=== PATIENT | female | born 1990 | race Caucasian/White ===

== ENCOUNTER 2016-08-31 17:20 | Inpatient (IN) | payer MEDICAID, OTHER ==
[~2016-08-31] VITALS: Ht 160 cm; Wt 60.0 kg
[~2016-08-31 17:20] MED LIST: PNV1TABL4 PO; PREN1TAB17 PO
[2016-08-31] MEDS ORDERED: morphine 4 MG/ML VIAL IV STA (17:39)
[2016-08-31] MEDS ORDERED: ONDANSETRON 4 MG INJ IV STA (17:39)
--- NOTE | 2016-08-31 18:40 | RADRPT ---
PROCEDURE: Abdominal Ultrasound (right upper quadrant). CLINICAL INDICATION: Abdominal pain TECHNIQUE: Multiple real-time longitudinal and transverse images of the right upper quadrant of th e abdomen were acquired utilizing a curved array transducer. Images were reviewed on a high-resoluti on PACS workstation. COMPARISON: None FINDINGS: The liver is normal in size and echogenicity. No focal masses are identified. There is no evidenc e of intra or extrahepatic ductal dilatation. The common bile duct measures 2.8 mm in diameter. Gal lstones are identified within the gallbladder. There is no gallbladder wall thickening. The visualized portions of the pancreas are unremarkable with obscuration of the tail of the pancrea s. No free fluid is identified. There is no evidence of right hydronephrosis or renal calcification. The right kidney measures 10.1 cm in length. The visualized portions of the aorta and inferior vena cava are within normal limits. IMPRESSION: 1. Cholelithiasis. 2. Otherwise unremarkable right upper quadrant ultrasound. RPTAT: HJBF .Judd Mallory MD, Date Time Electronically viewed and signed by .Judd Mallory MD, MD on 08/31/2016 18:40 .B/
[2016-08-31 19:21] LABS: HEMATOCRIT 41.8 % (37.0-47.0); HEMOGLOBIN 14.4 g/dl (12.0-16.0); MEAN CORPUSCULAR HGB CONC 34.5 g/dl (32.0-37.0); MEAN CORPUSCULAR VOLUME 87.2 fl (82.0-101.0); MEAN PLATELET VOLUME 9.1 fl (7.4-10.4); PLATELET COUNT 309 10^3/UL (140-440); RED BLOOD COUNT 4.79 10^6/ul (4.20-5.40); RED CELL DISTRIBUTION WIDTH 12.6 % (11.5-14.5); UNCORRECTED WBC 22.6 10^3/ul (4.8-10.8); WHITE BLOOD COUNT 22.6 10^3/ul (4.8-10.8)
[2016-08-31 19:37] LABS: CONDITION 1; LH ANALYZER COMMENTS 1; SUSPECT 1
[2016-08-31 20:06] LABS: ALBUMIN 4.4 g/dl (3.3-4.9); POTASSIUM 3.8 mmol/L (3.5-5.1)
[2016-08-31 20:09] LABS: ALBUMIN/GLOBULIN RATIO 1.12; BILIRUBIN,INDIRECT 0.5 mg/dl (0-1.1); BILIRUBIN,TOTAL 0.5 mg/dl (0.2-1.3); CALCIUM 9.4 mg/dl (8.4-10.2); CREATININE 0.4 mg/dl (0.44-1.00); TOTAL PROTEIN 8.3 g/dl (6.1-8.1)
[2016-08-31] MEDS ORDERED: SOD CHLORIDE 0.9% 1,000 ML IV ONE ×2 (20:21→21:00)
[2016-08-31] MEDS ORDERED: KETOROLAC 15 MG INJ IV STA (20:32)
[2016-08-31 20:34] LABS: LYMPHOCYTES # 4.7 10^3/ul (0.8-2.9); NEUTROPHIL # 7.5 10^3/ul (1.6-7.5)
[2016-08-31] MEDS ORDERED: ONDA4TAB8 PO (20:35)
[2016-08-31] MEDS ORDERED: IBUP-1542 PO (20:35)
[2016-08-31] MEDS ORDERED: OXYC-279 PO (20:35)
[2016-08-31 21:34] LABS: ADD UMIC YES; URINE BILIRUBIN (Dip) NEGATIVE (NEGATIVE); URINE BLOOD (Dip) TRACE (NEGATIVE); URINE COLOR YELLOW (YELLOW); URINE GLUCOSE (Dip) NEGATIVE (NEGATIVE); URINE KETONES (Dip) 3+ (NEGATIVE); URINE LEUKOCYTE ESTERASE (Dip) NEGATIVE (NEGATIVE); URINE NITRITE (Dip) NEGATIVE (NEGATIVE); URINE TOTAL PROTEIN (Dip) TRACE (NEGATIVE); URINE UROBILINOGEN (Dip) 0.2 E.U./dL (0.1-1.0)
--- NOTE | 2016-08-31 21:59 | CONS ---
Date/Time of Note Date/Time of Note DATE: 08/31/16 TIME: 21:57 Assessment/Plan Assessment/Plan Chief Complaint/Hosp Course 1. Pancreatitis probably 2nd Cholelithiasis -npo -ivf -medical optimization -pain control 2. Cholelithiasis -eventual cholecystectomy after resolution of pancreatitis Thank you, Problems: Consultation Date/Type/Reason Admit Date/Time Date of Consultation: Aug 31, 2016 Type of Consultation: Gen Surgical Reason for Consultation Abdominal pain Pancreatitis Cholelithiasis Leukocytosis Social History Smoking Status: Never smoker Exam/Review of Systems Vital Signs Vitals Vital Signs Date Time Temp Pulse Resp B/P Pulse Ox O2 Delivery O2 Flow Rate FiO2 08/31/16 17:25 98.5 100 22 130/72 100 Results Result Diagram: 08/31/16 1800 08/31/16 1800 Results 24 hrs Laboratory Tests Test 08/31/16 18:00 08/31/16 21:07 Alanine Aminotransferase (ALT/SGPT) 352 H Albumin 4.4 Albumin/Globulin Ratio 1.12 Alkaline Phosphatase 119 Anion Gap 20 H Aspartate Amino Transf (AST/SGOT) 320 H Band Neutrophils % 37.0 H Blood Urea Nitrogen 15 Calcium Level 9.4 Carbon Dioxide Level 23 Chloride Level 103 Creatinine 0.40 L Direct Bilirubin 0.00 Globulin 3.90 H Glucose Level 101 Hematocrit 41.8 Hemoglobin 14.4 Indirect Bilirubin 0.5 Lipase 58724 H Lymphocytes # 4.7 H Lymphocytes % 21.0 Mean Corpuscular Hemoglobin 30.0 Mean Corpuscular Hemoglobin Concent 34.5 Mean Corpuscular Volume 87.2 Mean Platelet Volume 9.1 Monocytes # 2.0 H Monocytes % 9.0 Neutrophils # 7.5 Neutrophils % 33.0 L Platelet Count 309 Potassium Level 3.8 Red Blood Count 4.79 Red Cell Distribution Width 12.6 Sodium Level 142 Total Bilirubin 0.5 Total Protein 8.3 H White Blood Count 22.6 H Urine Bilirubin NEGATIVE Urine Clarity CLEAR Urine Color YELLOW Urine Glucose NEGATIVE Urine Hemoglobin TRACE Urine Ketones 3+ H Urine Leukocyte Esterase NEGATIVE Urine Microscopic RBC Pending Urine Microscopic WBC Pending Urine Nitrite NEGATIVE Urine Specific [place] 1.020 Urine Total Protein TRACE Urine Urobilinogen 0.2 E.U./dL Urine pH 7.0 Medications Medications Current Medications Sodium Chloride 1,000 ml @ 1,000 mls/hr Q1H ONCE IV Last administered on t 20:44; Admin Dose 1,000 MLS/HR; Start 08/31/16 at 21:00; Stop 08/31/16 at 21: 59 Piperacillin Sod/ Tazobactam Sod (Zosyn 3.375gm/ 100 ml (Pmx)) 100 ml @ 200 mls /hr ONCE ONCE IVPB ; Start 08/31/16 at 22:00; Stop 08/31/16 at 22:29 ROLANDO NICOLE MD Aug 31, 2016 21:59
[2016-08-31] MEDS ORDERED: PIPER-TAZO 3.375 GM IV (PMX) 100 ML IVPB ONE (22:00)
[2016-08-31 22:06] LABS: BACTERIA,URINE MODERATE; SQUAMOUS EPITHELIAL CELL,UR MODERATE
[2016-08-31] MEDS ORDERED: SOD CHLORIDE 0.9% 1,000 ML IV STA (22:40)
--- NOTE | 2016-08-31 22:46 | ERA ---
ER Documentation Chief Complaint Date/Time DATE: 08/31/16 TIME: 22:41 Chief Complaint EPIGASTRIC PAIN FOR MONTHS BUT NOT BETTER TODAY. NAUSEA AND VOMITING HPI 26-year-old woman presents with 1 day of severe epigastric abdominal pain with nausea and a few episodes of clear nonbloody nonbilious emesis today. She states she has had recurrent intermittent right upper quadrant abdominal pain 9 months although has no previous diagnosis. She denies weight loss, no fevers or chills, no chest pain or shortness of breath, no melena or blood per rectum. Patient denies recent antibiotic use, history of alcoholism, or recent travel. ROS All systems reviewed and are negative except as per history of present illness. Medications Home Meds Active Scripts Ibuprofen* (Ibuprofen*) 600 Mg Tablet, 600 MG PO Q8 for PAIN, #30 TAB Prov:PARRISH WARREN MD 08/31/16 Ondansetron Hcl* (Zofran*) 4 Mg Tablet, 4 MG PO Q8H Y for NAUSEA AND/OR VOMITING , #20 TAB Prov:PARRISH WARREN MD 08/31/16 Oxycodone HCl/Acetaminophen (Percocet 5-325 mg Tablet) 1 Each Tablet, 1 EACH PO TID for PAIN, #15 TAB Prov:PARRISH WARREN MD 08/31/16 Reported Medications Pnv Cmb#95/Ferrous Fumarate/Fa ( MULTIVITAMINS TABLET) 1 Each Tablet, 1 EACH PO DAILY 08/04/13 Vit-Iron Fumarate-FA ( Tablet) 1 Each Tablet, 1 EACH PO DAILY 05/14/13 Allergies Allergies: Coded Allergies: No Known Allergies (Verified Allergy, 05/14/13) PMhx/Soc Possibly gastritis Medical and Surgical Hx: pt denies Medical Hx, pt denies Surgical Hx History of Surgery: No Anesthesia Reaction: No Hx Neurological Disorder: No Hx Respiratory Disorders: No Hx Cardiac Disorders: No Hx Psychiatric Problems: No Hx Miscellaneous Medical Probl: No Hx Alcohol Use: No Hx Substance Use: No Hx Tobacco Use: No Smoking Status: Never smoker FmHx Family History: No diabetes Physical Exam Vitals Vital Signs Date Time Temp Pulse Resp B/P Pulse Ox O2 Delivery O2 Flow Rate FiO2 08/31/16 17:25 98.5 100 22 130/72 100 Physical Exam GENERAL: Well-developed, well-nourished, well-hydrated, in no apparent distress , looks nontoxic in appearance, afebrile HEENT: Moist mucous membranes, pink conjunctiva, no cervical spine tenderness or step-off deformities, no goiter, no jaundice or icterus, extraocular movements intact without pain. No submandibular induration, and no pharyngeal erythema NEURO: Alert and oriented 3, cranial nerves II through XII intact bilaterally, pupils equal round reactive to light, no focal deficits or facial asymmetry, sensation intact distally Strength 5/5 in upper and lower extremities bilaterally CARDIAC: Tachycardic and regular, no murmurs rubs or gallops LUNGS: Clear bilaterally no wheezing crackles or stridor ABDOMEN: Moderate epigastric tenderness to touch with voluntary guarding, no rigidity or rebound, no psoas sign no obturator sign. Normoactive bowel sounds SKIN: Warm and dry to touch, no abrasions, contusions, or hematomas, no lacerations, no ecchymosis, no target lesions, and without ulcers EXTREMITIES: No clubbing cyanosis or edema, calves are bilaterally symmetrical, no Homans sign, no popliteal cord sign. Distal pulses equal and bilateral PSYCH: Normal affect without agitation or irritability Result Diagram: 08/31/16 1800 08/31/16 1800 Results 24 hrs Laboratory Tests Test 08/31/16 18:00 08/31/16 21:07 Alanine Aminotransferase (ALT/SGPT) 352IU/L Albumin 4.4g/dl Albumin/Globulin Ratio 1.12 Alkaline Phosphatase 119IU/L Anion Gap 20 Aspartate Amino Transf (AST/SGOT) 320IU/L Band Neutrophils % 37.0% Blood Urea Nitrogen 15mg/dl Calcium Level 9.4mg/dl Carbon Dioxide Level 23mmol/L Chloride Level 103mmol/L Creatinine 0.40mg/dl Direct Bilirubin 0.00mg/dl Globulin 3.90g/dl Glucose Level 101mg/dl Hematocrit 41.8% Hemoglobin 14.4g/dl Indirect Bilirubin 0.5mg/dl Lipase 01466T/L Lymphocytes # 4.710^3/ul Lymphocytes % 21.0% Mean Corpuscular Hemoglobin 30.0pg Mean Corpuscular Hemoglobin Concent 34.5g/dl Mean Corpuscular Volume 87.2fl Mean Platelet Volume 9.1fl Monocytes # 2.010^3/ul Monocytes % 9.0% Neutrophils # 7.510^3/ul Neutrophils % 33.0% Platelet Count 92179^3/UL Potassium Level 3.8mmol/L Red Blood Count 4.7910^6/ul Red Cell Distribution Width 12.6% Sodium Level 142mmol/L Total Bilirubin 0.5mg/dl Total Protein 8.3g/dl White Blood Count 22.610^3/ul Urine Bacteria MODERATE Urine Bilirubin NEGATIVE Urine Clarity SL.CLODY Urine Coarse Granular Casts RARE Urine Color YELLOW Urine Epithelial Cells Urine Glucose NEGATIVE% Urine Hemoglobin TRACE Urine Ketones 3+ Urine Leukocyte Esterase NEGATIVE Urine Microscopic RBC 2-5/HPF Urine Microscopic WBC 0-2/HPF Urine Nitrite NEGATIVE Urine Specific [place] 1.020 Urine Squamous Epithelial Cells MODERATE Urine Total Protein TRACE Urine Urobilinogen 0.2 E.U./dL Urine pH 7.0 Current Medications Medications (Trade) Dose Ordered Sig/[place]son Route PRN Reason Start Time Stop Time Status Last Admin Dose Admin Morphine Sulfate (morphine) 4 mg ONCE STAT IV 08/31/16 17:39 08/31/16 17:40 DC 08/31/16 19:08 Ondansetron HCl 4 mg 4 mg ONCE STAT IV 08/31/16 17:39 08/31/16 17:40 DC 08/31/16 19:08 Sodium Chloride (NS) 1,000 ml @ 0 mls/hr Q0M ONCE IV 08/31/16 20:21 08/31/16 20:25 DC 08/31/16 20:26 Ketorolac Tromethamine 15 mg 15 mg ONCE STAT IV 08/31/16 20:32 08/31/16 20:33 DC 08/31/16 20:44 Sodium Chloride 1,000 ml @ 1,000 mls/hr Q1H ONCE IV 08/31/16 21:00 08/31/16 21:59 DC 08/31/16 20:44 Piperacillin Sod/ Tazobactam Sod (Zosyn 3.375gm/ 100 ml (Pmx)) 100 ml @ 200 mls/hr ONCE ONCE IVPB 08/31/16 22:00 08/31/16 22:29 DC Procedures/[facility] IV line was established patient was placed on die cast supervisor rhythm strip revealed a sinus tachycardia at 100 bpm with upright P and T waves. Patient was afebrile. I initially administered 2 L normal saline and Unasyn, morphine 4 mg IV, and Zofran 4 mg IV. For continued pain she received Toradol 15 mg IV. CBC revealed a leukocytosis of 23, electrolytes were unremarkable, liver function tests were abnormal with elevated AST/ALT at 320/352, lipase elevated at 12,000, bilirubin levels normal. Urine test was negative, urine analysis was negative for infection. I spoke to gastroenterology and surgical consultants regarding the patient's presentation and symptomatology. We discussed her lab values and recommendation was for MRCP. This will be deferred to hospitalist. I administered Zosyn 3.375 g IV and another 2 L of normal saline intravenously Departure Diagnosis: Primary Impression: Cholelithiasis Qualified Code: K80.21 - Calculus of gallbladder with biliary obstruction but without cholecystitis Additional Impressions: Acute pancreatitis Qualified Code: K85.90 - Acute pancreatitis, unspecified complication status, unspecified pancreatitis type Transaminitis Condition: Serious Patient Instructions: Gallstones PARRISH WARREN MD Aug 31, 2016 22:46
[2016-09-01 06:30] VITALS: TEMP 98.3
[2016-09-01] MEDS ORDERED: SOD CHLORIDE 0.9% 1,000 ML IV STA (07:38)
--- NOTE | 2016-09-01 08:34 | CONS ---
Date/Time of Note Date/Time of Note DATE: 09/01/16 TIME: 08:31 Assessment/Plan Assessment/Plan Additional Assessment/Plan Abdominal pain Nausea Vomiting * Evaluate for Glenda choledocholithiasis versus cholelithiasis * Gallbladder ultrasound 09-01-16: Cholelithiasis. * MRCP in process * N.p.o. * IVF hydration * Monitor labs * Surgery following Further recommendations depend on clinical course Patient seen in collaboration with Dr. Fisher Consultation Date/Type/Reason Admit Date/Time Type of Consultation: Gastroenterology Reason for Consultation Abdominal pain Hx of Present Illness 26-year-old female with complaints of intense epigastric and right upper quadrant abdominal pain, nausea, and nonbloody bilious vomiting 1 day. Patient states she has been experiencing these symptoms intermittently for the last 9 months. Patient denies diarrhea, sick contacts, travel outside the [place], hematemesis, recent antibiotics, new medications, and alcohol abuse. Patient states she has never been told she has gallstones. Patient denies any other chronic conditions. Past Medical History Medical History: no pertinent history Past Surgical History Past Surgical Hx: no surgical history Social History Alcohol Use: none Smoking Status: Never smoker Exam/Review of Systems Vital Signs Vitals Vital Signs Date Time Temp Pulse Resp B/P Pulse Ox O2 Delivery O2 Flow Rate FiO2 09/01/16 06:30 98.3 65 20 102/65 100 Room Air Exam Constitutional: alert, oriented, well developed Psych: nl mood/affect, no complaints Head: atraumatic Eyes: EOMI, nl conjunctiva, nl lids, nl sclera ENMT: nl external ears & nose, nl lips & teeth, nl nasal mucosa & septum Gastrointestinal: soft, tender Musculoskeletal: nl extremities to inspection Neurological: VP DELIVERY II-XII intact Results Result Diagram: 08/31/16 1800 08/31/16 1800 Results 24 hrs Laboratory Tests Test 08/31/16 18:00 08/31/16 21:07 Alanine Aminotransferase (ALT/SGPT) 352 H Albumin 4.4 Albumin/Globulin Ratio 1.12 Alkaline Phosphatase 119 Anion Gap 20 H Aspartate Amino Transf (AST/SGOT) 320 H Band Neutrophils % 37.0 H Blood Urea Nitrogen 15 Calcium Level 9.4 Carbon Dioxide Level 23 Chloride Level 103 Creatinine 0.40 L Direct Bilirubin 0.00 Globulin 3.90 H Glucose Level 101 Hematocrit 41.8 Hemoglobin 14.4 Indirect Bilirubin 0.5 Lipase 53477 H Lymphocytes # 4.7 H Lymphocytes % 21.0 Mean Corpuscular Hemoglobin 30.0 Mean Corpuscular Hemoglobin Concent 34.5 Mean Corpuscular Volume 87.2 Mean Platelet Volume 9.1 Monocytes # 2.0 H Monocytes % 9.0 Neutrophils # 7.5 Neutrophils % 33.0 L Platelet Count 309 Potassium Level 3.8 Red Blood Count 4.79 Red Cell Distribution Width 12.6 Sodium Level 142 Total Bilirubin 0.5 Total Protein 8.3 H White Blood Count 22.6 H Urine Bacteria MODERATE Urine Bilirubin NEGATIVE Urine Clarity SL.CLODY Urine Coarse Granular Casts RARE Urine Color YELLOW Urine Epithelial Cells Urine Glucose NEGATIVE Urine Hemoglobin TRACE Urine Ketones 3+ H Urine Leukocyte Esterase NEGATIVE Urine Microscopic RBC 2-5 Urine Microscopic WBC 0-2 Urine Nitrite NEGATIVE Urine Test NEGATIVE Urine Specific [place] 1.020 Urine Squamous Epithelial Cells MODERATE Urine Total Protein TRACE Urine Urobilinogen 0.2 E.U./dL Urine pH 7.0 ELBRON RODRIGUEZ Sep 01, 2016 08:34
[2016-09-01 08:57] VITALS: BP 101/56; RESP 18
[2016-09-01 09:00] VITALS: Ht 160 cm; Wt 60.0 kg
--- NOTE | 2016-09-01 12:40 | RADRPT ---
PROCEDURE: MRI abdomen without contrast; MRCP CLINICAL INDICATION: abdominal pain TECHNIQUE: Multiplanar, multisequence imaging of the abdomen was obtained without contrast. Imagi ng includes axial T2, T2 fat sat, in and out of phase gradient images, and noncontrast T1 fat-satura maria fernanda images. In addition, a dedicated high T2 signal intensity MRCP images were obtained in multiple planes with 3-D reconstructions. COMPARISON: none FINDINGS: The gallbladder is filled with stones and partially contracted and this accentuates the appearance o f the gallbladder wall without definite visible surrounding pericholecystic fluid or inflammation. There is no intrahepatic or extrahepatic biliary ductal dilatation. The MRCP images are slightly di storted by motion with no gross evidence for choledocholithiasis. The common duct is diminutive in diameter. The pancreatic duct is also diminutive and not well visualized. Trace peripancreatic elevated T2 signal is seen which is indeterminate. The pancreatic parenchyma i s otherwise unremarkable. There is uniform signal intensity of the liver without evidence of mass. There is a flow void seen within the portal vein without gross evidence for portal vein thrombus. The kidneys are symmetric without hydronephrosis or mass. The adrenal glands are within normal limi ts. There is no evidence of bowel obstruction. There are no enlarged lymph nodes. There is no acute oss eous abnormality. IMPRESSION: Cholelithiasis with no definite evidence for cholecystitis. There is a diminutive appearance the co mmon duct with no visible intraductal stones. MRCP is slightly distorted by motion. Trace elevated signal is seen around the pancreatic parenchyma and this can be correlated with amyla se/lipase levels to rule out mild pancreatitis. RPTAT: AA .Kimberlee Brandt MD, MD Date Time Electronically viewed and signed by .Kimberlee Brandt MD, MD on 09/01/2016 12:40 .Marium/
--- NOTE | 2016-09-01 12:41 | PN ---
DATE: 09/01/2016 SUBJECTIVE DATA: Complains of abdominal pain. Denies any nausea or vomiting. OBJECTIVE DATA: VITAL SIGNS: Temperature 98.6, pulse rate 64, respiratory rate 18, blood pressure 101/56, oxygen saturation 96% on room air. GENERAL: This is a well-built, well-nourished female lying in bed, in no apparent distress. HEENT: Head normocephalic and atraumatic. Eyes, anicteric sclerae. Conjunctivae clear. ENT: Nasal septum is midline. Oral mucosa is dry. NECK: Supple. No JVD noticed. RESPIRATORY: Bilaterally clear to auscultation. No adventitious breath sounds heard. No use of accessory muscles of respiration. CARDIAC: Regular rate and rhythm. No murmur is heard. ABDOMEN: Soft. Tenderness in the epigastric area and right upper quadrant. No guarding. GENITOURINARY: Deferred. EXTREMITIES: No cyanosis, no clubbing, no edema. Peripheral pulses palpable. NEUROLOGIC: The patient is awake, alert and oriented. Cranial nerves are grossly intact. LABORATORY AND DIAGNOSTIC DATA: WBC 22.6, hemoglobin 14.4, hematocrit 41.8, platelet count 309. Sodium 142, potassium 3.8, chloride 103, carbon dioxide 23 , anion gap 20, BUN 15, creatinine 0.47, glucose 101, calcium 9.4, total bilirubin 0.5, indirect bilirubin 0.5, AST 320, ALT 352, alkaline phosphatase 199, lipase 28967. ASSESSMENT AND PLAN: 1. Acute pancreatitis, most probably gallstone pancreatitis, as the patient has evidence of cholelithiasis. Continue the patient n.p.o. Continue pain control. Will start the patient on empiric antibiotics since the patient has associated leukocytosis and bandemia. General surgery and gastroenterology are following the patient. 2. Symptomatic cholelithiasis. Continue pain control. Continue bowel rest. On antibiotics to avoid any cholangitis. Pending MRCP to evaluate for any underlying choledocholithiasis. 3. Transaminitis. Continue management as per #1 and 2. Avoid hepatotoxic medications. 4. Systemic inflammatory response syndrome with leukocytosis and tachycardia, most probably secondary to #1. Obtain pancultures. The patient has no evidence of any septic shock. 5. Fluids, electrolytes and nutrition. Continue n.p.o. Continue IV fluids. 6. Deep venous thrombosis prophylaxis. Bilateral sequential compression devices. 7. Gastrointestinal prophylaxis with histamine 2 receptor blockers. PLAN: Continue n.p.o. Continue IV fluids. Continue pain control. Trend pancreatic enzyme levels. Monitor in house. Case discussed with Dr. Jefferson. HOUSTON JEFFERSON MD, AM/DANNI Conf#: [id number] DID#: [id number] MTDD
--- NOTE | 2016-09-01 12:41 | RADRPT ---
PROCEDURE: XR Chest. CLINICAL INDICATION: Cough. TECHNIQUE: Single frontal view. COMPARISON: None. FINDINGS: The lungs are clear. The heart size is normal. There is no pleural effusion. There is no pneumothorax. IMPRESSION: 1. Normal chest radiograph. RPTAT: QQ .Aden Ellington MD, Date Time Electronically viewed and signed by .Aden Ellington MD, MD on 09/01/2016 12:41 .R/
[2016-09-01] MEDS: D5W-0.45 NACL + KCL 10 MEQ 1,000 ML IV SCH ×2 (12:51→20:00)
[2016-09-01] MEDS: PIPER-TAZO 3.375 GM IV (PMX) 100 ML IVPB SCH ×2 (14:07→21:45)
[2016-09-01 14:44] LABS: BASOPHILS % 0.4 % (0.0-2.0); EOSINOPHILS # 0.8 10^3/ul (0.0-0.5); EOSINOPHILS % 6.3 % (0.0-7.0); HEMATOCRIT 34.1 % (37.0-47.0); HEMOGLOBIN 11.5 g/dl (12.0-16.0); LYMPHOCYTES # 3.4 10^3/ul (0.8-2.9); LYMPHOCYTES % 27.7 % (15.0-51.0); MEAN CORPUSCULAR HGB CONC 33.6 g/dl (32.0-37.0); MEAN CORPUSCULAR VOLUME 89.3 fl (82.0-101.0); MEAN PLATELET VOLUME 9.2 fl (7.4-10.4); MONOCYTE # 0.6 10^3/ul (0.3-0.9); MONOCYTES % 4.7 % (0.0-11.0); NEUTROPHIL # 7.5 10^3/ul (1.6-7.5); NEUTROPHILS % 60.9 % (39.0-77.0); PLATELET COUNT 256 10^3/UL (140-440); RED BLOOD COUNT 3.82 10^6/ul (4.20-5.40); UNCORRECTED WBC 12.3 10^3/ul (4.8-10.8); WHITE BLOOD COUNT 12.3 10^3/ul (4.8-10.8)
[2016-09-01 14:46] LABS: CONDITION 1
[2016-09-01 14:53] LABS: ALBUMIN 3.1 g/dl (3.3-4.9)
[2016-09-01 14:55] LABS: POTASSIUM 3.5 mmol/L (3.5-5.1)
[2016-09-01 14:56] LABS: BILIRUBIN,INDIRECT 0.3 mg/dl (0-1.1); BILIRUBIN,TOTAL 0.3 mg/dl (0.2-1.3); CREATININE 0.39 mg/dl (0.44-1.00)
[2016-09-01 14:57] LABS: ALBUMIN/GLOBULIN RATIO 1.06; CALCIUM 7.7 mg/dl (8.4-10.2); MAGNESIUM 1.9 mg/dl (1.7-2.5); PHOSPHORUS 2.3 mg/dl (2.5-4.9)
[2016-09-01 15:49] LABS: THYROID STIMULATING HORMONE 0.493 MIU/L (0.465-4.680)
[2016-09-01] MEDS: ONDANSETRON 4 MG INJ IV PRN (17:51)
[2016-09-01 19:49] VITALS: BP 105/62; RESP 18
[2016-09-01] MEDS: morphine 4 MG/ML VIAL IV PRN (19:51)
[2016-09-01] MEDS: FAMOTIDINE 20 MG INJ IV SCH (21:44)
[2016-09-02] MEDS: D5W-0.45 NACL + KCL 10 MEQ 1,000 ML IV SCH ×4 (03:28→22:10)
[2016-09-02] MEDS: PIPER-TAZO 3.375 GM IV (PMX) 100 ML IVPB SCH ×3 (04:53→22:10)
[2016-09-02 07:04] LABS: ALBUMIN 2.8 g/dl (3.3-4.9); POTASSIUM 3.6 mmol/L (3.5-5.1)
[2016-09-02 07:06] LABS: CREATININE 0.42 mg/dl (0.44-1.00)
[2016-09-02 07:07] LABS: ALBUMIN/GLOBULIN RATIO 0.96; BILIRUBIN,INDIRECT 0.2 mg/dl (0-1.1); BILIRUBIN,TOTAL 0.2 mg/dl (0.2-1.3); CALCIUM 7.9 mg/dl (8.4-10.2); TOTAL PROTEIN 5.7 g/dl (6.1-8.1)
[2016-09-02 07:10] LABS: AMYLASE 264 U/L (11-123)
[2016-09-02 07:15] LABS: PHOSPHORUS 2.7 mg/dl (2.5-4.9)
[2016-09-02 07:40] LABS: HEMOGLOBIN 10.6 g/dl (12.0-16.0); MEAN CORPUSCULAR HGB CONC 33.1 g/dl (32.0-37.0); MEAN CORPUSCULAR VOLUME 90.7 fl (82.0-101.0); RED BLOOD COUNT 3.53 10^6/ul (4.20-5.40); UNCORRECTED WBC 11.3 10^3/ul (4.8-10.8); WHITE BLOOD COUNT 11.3 10^3/ul (4.8-10.8)
[2016-09-02 07:41] LABS: PLATELET COUNT 248 10^3/UL (140-440); RED CELL DISTRIBUTION WIDTH 12.5 % (11.5-14.5)
[2016-09-02 07:42] LABS: BASOPHILS % 0.4 % (0.0-2.0); EOSINOPHILS % 13.6 % (0.0-7.0); LYMPHOCYTES # 3.3 10^3/ul (0.8-2.9); LYMPHOCYTES % 28.8 % (15.0-51.0); MONOCYTES % 8.8 % (0.0-11.0); NEUTROPHIL # 5.5 10^3/ul (1.6-7.5); NEUTROPHILS % 48.1 % (39.0-77.0)
[2016-09-02 07:43] LABS: EOSINOPHILS # 1.5 10^3/ul (0.0-0.5)
[2016-09-02 08:19] VITALS: BP 94/52; RESP 21
[2016-09-02 08:30] VITALS: BP 101/84
--- NOTE | 2016-09-02 08:37 | CONS ---
Date/Time of Note Date/Time of Note DATE: 09/02/16 TIME: 08:36 Assessment/Plan Assessment/Plan Chief Complaint/Hosp Course 26-year-old female with complaints of intense epigastric and right upper quadrant abdominal pain, nausea, and nonbloody bilious vomiting 1 day. Patient states she has been experiencing these symptoms intermittently for the last 9 months. Patient denies diarrhea, sick contacts, travel outside the [place], hematemesis, recent antibiotics, new medications, and alcohol abuse. Patient states she has never been told she has gallstones. Patient denies any other chronic conditions. Problems: Additional Assessment/Plan Abdominal pain Nausea Vomiting * Evaluate for choledocholithiasis versus cholelithiasis * Gallbladder ultrasound 09-01-16: Cholelithiasis. * MRCP : The gallbladder is filled with stones and partially contracted and this accentuates the appearance of the gallbladder wall without definite visible surrounding pericholecystic fluid or inflammation. There is no intrahepatic or extrahepatic biliary ductal dilatation. The MRCP images are slightly distorted by motion with no gross evidence for choledocholithiasis. The common duct is diminutive in diameter. The pancreatic duct is also diminutive and not well visualized. * N.p.o. * IVF hydration * Monitor labs * Surgery following Anemia * Stool OB * Iron profile Further recommendations depend on clinical course Patient seen in collaboration with Dr. Fisher Consultation Date/Type/Reason Admit Date/Time Aug 31, 2016 at 21:49 Initial Consult Date 08/31/16 Type of Consultation: Gastroenterology 24 HR Interval Summary Free Text/Dictation Reports less abdominal pain MRCP negative for choledocholithiasis Reports nausea but no vomiting Drop in hemoglobin Stool OB in process Exam/Review of Systems Vital Signs Vitals Vital Signs Date Time Temp Pulse Resp B/P Pulse Ox O2 Delivery O2 Flow Rate FiO2 09/02/16 08:19 98.1 65 21 94/52 99 09/01/16 06:30 Room Air Intake and Output 09/01/16 09/01/16 09/02/16 15:00 23:00 07:00 Intake Total 100 ml 250 ml 1400 ml Balance 100 ml 250 ml 1400 ml Exam Constitutional: alert, oriented, well developed Psych: nl mood/affect, no complaints Head: atraumatic Eyes: EOMI, nl conjunctiva, nl lids, nl sclera ENMT: nl external ears & nose, nl lips & teeth, nl nasal mucosa & septum Gastrointestinal: soft, tender Musculoskeletal: nl extremities to inspection Neurological: LOADER OPERATOR/GROUND LEADER II-XII intact Results Result Diagram: 09/02/1652409/02/16 0525 Results 24 hrs Laboratory Tests Test 09/01/16 12:30 09/01/16 13:43 09/02/16 05:25 Amylase Level 784 H 707 H 264 #H Alanine Aminotransferase (ALT/SGPT) 176 H 134 H Albumin 3.1 #L 2.8 L Albumin/Globulin Ratio 1.06 0.96 Alkaline Phosphatase 83 70 Anion Gap 14 13 Aspartate Amino Transf (AST/SGOT) 89 H 46 Basophils # 0.0 0.0 Basophils % 0.4 0.4 Blood Urea Nitrogen 12 7 Calcium Level 7.7 L 7.9 L Carbon Dioxide Level 21 23 Chloride Level 109 107 Cholesterol Level 94 L Cholesterol/HDL Ratio 2.0 Creatinine 0.39 L 0.42 L Direct Bilirubin 0.00 0.00 Eosinophils # 0.8 H 1.5 H Eosinophils % 6.3 13.6 H Free Thyroxine 0.93 Globulin 2.90 2.90 Glucose Level 68 #L 85 HDL Cholesterol 46 Hematocrit 34.1 L 32.0 L Hemoglobin 11.5 #L 10.6 L Hemoglobin A1c 5.1 Indirect Bilirubin 0.3 0.2 LDL Cholesterol, Calculated 39 Lactic Acid Level 0.9 Lipase 1645 H Lymphocytes # 3.4 H 3.3 H Lymphocytes % 27.7 28.8 Magnesium Level 1.9 2.0 Mean Corpuscular Hemoglobin 30.0 30.0 Mean Corpuscular Hemoglobin Concent 33.6 33.1 Mean Corpuscular Volume 89.3 90.7 Mean Platelet Volume 9.2 11.0 H Monocytes # 0.6 1.0 H Monocytes % 4.7 8.8 Neutrophils # 7.5 5.5 Neutrophils % 60.9 48.1 Nucleated Red Blood Cells # 0.0 0.0 Nucleated Red Blood Cells % 0.0 0.0 Phosphorus Level 2.3 L 2.7 Platelet Count 256 248 Potassium Level 3.5 3.6 Red Blood Count 3.82 #L 3.53 L Red Cell Distribution Width 13.0 12.5 Sodium Level 140 139 Thyroid Stimulating Hormone (TSH) 0.493 Total Bilirubin 0.3 0.2 Total Protein 6.0 #L 5.7 L Triglycerides Level 44 White Blood Count 12.3 #H 11.3 H Differential Comment Medications Medications Current Medications Piperacillin Sod/ Tazobactam Sod (Zosyn 3.375gm/ 100 ml (Pmx)) 100 ml @ 200 mls /hr Q8 IVPB Last administered on 09/02/16 04:53; Admin Dose 200 MLS/HR; Start 09/01/16 at 14:00 Ondansetron HCl (Zofran Inj) 4 mg Q6H PRN IV NAUSEA AND/OR VOMITING Last administered on 09/01/16 17:51; Admin Dose 4 MG; Start 09/01/16 at 12:00 Morphine Sulfate 3 mg 3 mg Q4H PRN IV Pain Last administered on 09/01/16 19:51 ; Admin Dose 3 MG; Start 09/01/16 at 12:00 Potassium Chloride/Dextrose/ Sod Cl (D5-1/2ns + KCl 10 Meq) 1,000 ml @ 125 mls/ hr Q8H IV Last administered on 09/02/16 03:28; Admin Dose 125 MLS/HR; Start 09/01/16 at 12:00 Tramadol HCl (Ultram) 50 mg Q6H PRN PO Pain; Start 09/01/16 at 12:00 Famotidine (Pepcid Iv) 20 mg BID IV Last administered on 09/01/16 21:44; Admin Dose 20 MG; Start 09/01/16 at 21:00 LEBRON RODRIGUEZ Sep 02, 2016 08:37
[2016-09-02] MEDS: FAMOTIDINE 20 MG INJ IV SCH ×2 (08:53→22:10)
[2016-09-02] MEDS: ONDANSETRON 4 MG INJ IV PRN ×2 (10:03→19:59)
--- NOTE | 2016-09-02 11:45 | PN ---
Date/Time of Note Date/Time of Note DATE: 09/02/16 TIME: 11:36 Assessment/Plan VTE Prophylaxis VTE Prophylaxis Intervention: SCD's Lines/Catheters IV C[facility]ter Type (from [facility]): Peripheral IV Urinary Cath still in place: No Assessment/Plan Assessment/Plan PROBLEMS: Acute pancreatitis, most probably gallstone pancreatitis: improved ++ * MRI negative for choledocholithiasis SIRS 2/2 Pancreatitis Symptomatic cholelithiasis Acute Transaminitis: improving Probable Choledocholithiasis causing above: Patient has likely passed stone PLAN: Continue IVF / NPO / Pain control / Supportive care F/u GI plan, re: ?ERCP Planned for cholecystectomy once pancreatitis resolved ?D/c abx Continue to trend Lipase levels till resolution Subjective 24 Hr Interval Summary Free Text/Dictation Patient seen and examined. still with mild abd pain and headache Exam/Review of Systems Vital Signs Vitals Vital Signs Date Time Temp Pulse Resp B/P Pulse Ox O2 Delivery O2 Flow Rate FiO2 09/02/16 08:19 98.1 65 21 94/52 99 09/01/16 06:30 Room Air Intake and Output 09/01/16 09/01/16 09/02/16 15:00 23:00 07:00 Intake Total 100 ml 250 ml 1400 ml Balance 100 ml 250 ml 1400 ml Exam GENERAL: This is a well-built, well-nourished female lying in bed, in no apparent distress. HEENT: Head normocephalic and atraumatic. Eyes, anicteric sclerae. Conjunctivae clear. ENT: Nasal septum is midline. Oral mucosa is dry. NECK: Supple. No JVD noticed. RESPIRATORY: Bilaterally clear to auscultation. No adventitious breath sounds heard. No use of accessory muscles of respiration. CARDIAC: Regular rate and rhythm. No murmur is heard. ABDOMEN: Soft. Tenderness in the epigastric area and right upper quadrant. No guarding. GENITOURINARY: Deferred. EXTREMITIES: No cyanosis, no clubbing, no edema. Peripheral pulses palpable. NEUROLOGIC: The patient is awake, alert and oriented. Cranial nerves are grossly intact. Results Result Diagram: 09/02/16 0525 09/02/16 0525 Results 24 hrs Laboratory Tests Test 09/01/16 12:30 09/01/16 13:43 09/02/16 05:25 Amylase Level 784 H 707 H 264 #H Alanine Aminotransferase (ALT/SGPT) 176 H 134 H Albumin 3.1 #L 2.8 L Albumin/Globulin Ratio 1.06 0.96 Alkaline Phosphatase 83 70 Anion Gap 14 13 Aspartate Amino Transf (AST/SGOT) 89 H 46 Basophils # 0.0 0.0 Basophils % 0.4 0.4 Blood Urea Nitrogen 12 7 Calcium Level 7.7 L 7.9 L Carbon Dioxide Level 21 23 Chloride Level 109 107 Cholesterol Level 94 L Cholesterol/HDL Ratio 2.0 Creatinine 0.39 L 0.42 L Direct Bilirubin 0.00 0.00 Eosinophils # 0.8 H 1.5 H Eosinophils % 6.3 13.6 H Free Thyroxine 0.93 Globulin 2.90 2.90 Glucose Level 68 #L 85 HDL Cholesterol 46 Hematocrit 34.1 L 32.0 L Hemoglobin 11.5 #L 10.6 L Hemoglobin A1c 5.1 Indirect Bilirubin 0.3 0.2 LDL Cholesterol, Calculated 39 Lactic Acid Level 0.9 Lipase 1645 H Lymphocytes # 3.4 H 3.3 H Lymphocytes % 27.7 28.8 Magnesium Level 1.9 2.0 Mean Corpuscular Hemoglobin 30.0 30.0 Mean Corpuscular Hemoglobin Concent 33.6 33.1 Mean Corpuscular Volume 89.3 90.7 Mean Platelet Volume 9.2 11.0 H Monocytes # 0.6 1.0 H Monocytes % 4.7 8.8 Neutrophils # 7.5 5.5 Neutrophils % 60.9 48.1 Nucleated Red Blood Cells # 0.0 0.0 Nucleated Red Blood Cells % 0.0 0.0 Phosphorus Level 2.3 L 2.7 Platelet Count 256 248 Potassium Level 3.5 3.6 Red Blood Count 3.82 #L 3.53 L Red Cell Distribution Width 13.0 12.5 Sodium Level 140 139 Thyroid Stimulating Hormone (TSH) 0.493 Total Bilirubin 0.3 0.2 Total Protein 6.0 #L 5.7 L Triglycerides Level 44 White Blood Count 12.3 #H 11.3 H Differential Comment Medications Medications Current Medications Piperacillin Sod/ Tazobactam Sod (Zosyn 3.375gm/ 100 ml (Pmx)) 100 ml @ 200 mls /hr Q8 IVPB Last administered on 09/02/16t 04:53; Admin Dose 200 MLS/HR; Start 09/01/16 at 14:00 Ondansetron HCl (Zofran Inj) 4 mg Q6H PRN IV NAUSEA AND/OR VOMITING Last administered on 09/02/16 10:03; Admin Dose 4 MG; Start 09/01/16 at 12:00 Morphine Sulfate 3 mg 3 mg Q4H PRN IV Pain Last administered on 09/01/16 19:51 ; Admin Dose 3 MG; Start 09/01/16 at 12:00 Potassium Chloride/Dextrose/ Sod Cl (D5-1/2ns + KCl 10 Meq) 1,000 ml @ 125 mls/ hr Q8H IV Last administered on 09/02/16 03:28; Admin Dose 125 MLS/HR; Start 09/01/16 at 12:00 Tramadol HCl (Ultram) 50 mg Q6H PRN PO Pain; Start 09/01/16 at 12:00 Famotidine (Pepcid Iv) 20 mg BID IV Last administered on 09/02/16 08:53; Admin Dose 20 MG; Start 09/01/16 at 21:00 Procedures Procedures PROCEDURE: MRI abdomen without contrast; MRCP CLINICAL INDICATION: abdominal pain TECHNIQUE: Multiplanar, multisequence imaging of the abdomen was obtained without contrast. Imaging includes axial T2, T2 fat sat, in and out of phase gradient images, and noncontrast T1 fat-saturated images. In addition, a dedicated high T2 signal intensity MRCP images were obtained in multiple planes with 3-D reconstructions. COMPARISON: none FINDINGS: The gallbladder is filled with stones and partially contracted and this accentuates the appearance of the gallbladder wall without definite visible surrounding pericholecystic fluid or inflammation. There is no intrahepatic or extrahepatic biliary ductal dilatation. The MRCP images are slightly distorted by motion with no gross evidence for choledocholithiasis. The common duct is diminutive in diameter. The pancreatic duct is also diminutive and not well visualized. Trace peripancreatic elevated T2 signal is seen which is indeterminate. The pancreatic parenchyma is otherwise unremarkable. There is uniform signal intensity of the liver without evidence of mass. There is a flow void seen within the portal vein without gross evidence for portal vein thrombus. The kidneys are symmetric without hydronephrosis or mass. The adrenal glands are within normal limits. There is no evidence of bowel obstruction. There are no enlarged lymph nodes. There is no acute osseous abnormality. IMPRESSION: Cholelithiasis with no definite evidence for cholecystitis. There is a diminutive appearance the common duct with no visible intraductal stones. MRCP is slightly distorted by motion. Trace elevated signal is seen around the pancreatic parenchyma and this can be correlated with amylase/lipase levels to rule out mild pancreatitis. RPTAT: AA .Kimberlee Brandt MD, Date Time Electronically viewed and signed by .Kimberlee Brandt MD, on 09/01/2016 12:40 PALLAVI EVERETT Sep 02, 2016 11:45
[2016-09-02] MEDS ORDERED: KETOROLAC 30 MG INJ IV PRN (16:30)
--- NOTE | 2016-09-02 18:08 | PN ---
Date/Time of Note Date/Time of Note DATE: 09/01/16 TIME: 18:01 Assessment/Plan Lines/Catheters IV Catheter Type (from [facility]): Peripheral IV Clay in Place (from [facility]): No Assessment/Plan Chief Complaint/Hosp Course 1. Pancreatitis probably 2nd Cholelithiasis -npo -ivf -medical optimization -pain control 2. Cholelithiasis -eventual cholecystectomy after resolution of pancreatitis 3. Transaminitis 2nd passed stone. MRCP negative for choledocholithiasis -as above 4. Leukocytosis improving 5. Anemia, ? dilutional -monitor 6. Hypoalbuminemia 2nd acute process -eventual nutritional optimization Thank you, Late entry 2 Problems: Subjective 24 Hr Interval Summary No f/c. No n/v. No cp/sob. No cough. No baca/dizzy/visual or neuro changes. No dysuria. Bowel function. No bloating. Feeling better and less anxious. Exam/Review of Systems Vital Signs Vitals Vital Signs Date Time Temp Pulse Resp B/P Pulse Ox O2 Delivery O2 Flow Rate FiO2 09/02/16 08:30 101/84 09/02/16 08:19 98.1 65 21 99 09/01/16 06:30 Room Air Intake and Output 09/01/16 09/01/16 09/02/16 15:00 23:00 07:00 Intake Total 100 ml 250 ml 1400 ml Balance 100 ml 250 ml 1400 ml Exam Constitutional: alert, oriented, No distress Psych: anxiety Head: atraumatic, normocephalic Eyes: EOMI, PERRL, nl conjunctiva, No icteric ENMT: mucosa pink and moist, nl external ears & nose, nl lips & teeth Neck: non-tender, supple, No jvd Respiratory: normal air movement, No congested cough Cardiovascular: regular rate and rhythm, No edema Gastrointestinal: soft, tender (epigastric and left upper quadrant), No distended, No rebound or guarding Musculoskeletal: nl extremities to inspection, nl gait and stance, No joint tenderness Extremities: normal pulses, No calf tenderness, No cyanosis Neurological: nl mental status, nl speech, nl strength Skin: nl turgor, No diaphoresis, No rash or lesions Lymph: nl lymph nodes Results Free Text/Dictation MRCP: Cholelithiasis with no definite evidence for cholecystitis. There is a diminutive appearance the common duct with no visible intraductal stones. MRCP is slightly distorted by motion. Trace elevated signal is seen around the pancreatic parenchyma and this can be correlated with amylase/lipase levels to rule out mild pancreatitis. Result Diagram: 09/02/16 0525 09/02/16 0525 ROLANDO NICOLE MD Sep 02, 2016 18:08
--- NOTE | 2016-09-02 18:09 | PN ---
Date/Time of Note Date/Time of Note DATE: 09/02/16 TIME: 18:08 Assessment/Plan Lines/Catheters IV Catheter Type (from [facility]): Peripheral IV Clay in Place (from [facility]): No Assessment/Plan Chief Complaint/Hosp Course 1. Pancreatitis probably 2nd Cholelithiasis -npo -ivf -medical optimization -pain control 2. Cholelithiasis -eventual cholecystectomy after resolution of pancreatitis 3. Transaminitis 2nd passed stone. MRCP negative for choledocholithiasis -as above 4. Leukocytosis improving 5. Anemia, ? dilutional -monitor 6. Hypoalbuminemia 2nd acute process -eventual nutritional optimization Thank you, Problems: Subjective 24 Hr Interval Summary No f/c. No n/v. No cp/sob. No cough. No baca/dizzy/visual or neuro changes. No dysuria. Bowel function. No bloating. Feeling better and less anxious. Exam/Review of Systems Vital Signs Vitals Vital Signs Date Time Temp Pulse Resp B/P Pulse Ox O2 Delivery O2 Flow Rate FiO2 09/02/16 08:30 101/84 09/02/16 08:19 98.1 65 21 99 09/01/16 06:30 Room Air Intake and Output 09/01/16 09/01/16 09/02/16 15:00 23:00 07:00 Intake Total 100 ml 250 ml 1400 ml Balance 100 ml 250 ml 1400 ml Exam Free Text/Dictation Constitutional: alert, oriented, No distress Psych: anxiety Head: atraumatic, normocephalic Eyes: EOMI, PERRL, nl conjunctiva, No icteric ENMT: mucosa pink and moist, nl external ears & nose, nl lips & teeth Neck: non-tender, supple, No jvd Respiratory: normal air movement, No congested cough Cardiovascular: regular rate and rhythm, No edema Gastrointestinal: soft, tender (epigastric and left upper quadrant), No distended, No rebound or guarding Musculoskeletal: nl extremities to inspection, nl gait and stance, No joint tenderness Extremities: normal pulses, No calf tenderness, No cyanosis Neurological: nl mental status, nl speech, nl strength Skin: nl turgor, No diaphoresis, No rash or lesions Lymph: nl lymph nodes Results Result Diagram: 09/02/16 0525 09/02/16 0525 ROLANDO NICOLE MD Sep 02, 2016 18:09
[2016-09-02 20:00] VITALS: BP 96/64; PULSE 53; RESP 20
--- NOTE | 2016-09-03 03:58 | CONS ---
DATE OF ADMISSION: 08/31/2016 DATE OF CONSULTATION: 08/31/2016 TYPE OF CONSULTATION: Surgical. REFERRING PHYSICIAN: Dr. Cash Horn. CHIEF COMPLAINT: 1. Abdominal pain. 2. Pancreatitis. 3. Cholelithiasis. 4. Leukocytosis. HISTORY OF PRESENT ILLNESS: Ms. Kandi Barrow is a 26-year-old female, otherwise usually healthy, who presents with abdominal pain in the epigastric region associated with nonbloody, nonbilious vom iting x1 day. She has had on and off symptoms for the past 9 months. She denies any chest pain, sh ortness of breath. No fevers or chills. No visual or neurologic changes. No dysuria or vaginal di scharge. No skin color, urine color, eyeball color, of stool color changes. No trauma or sick cont acts. Does not drink alcohol. In the emergency room, she is found to be afebrile with stable vitals; however, she has leukocytosis with elevated lipase. Her imaging including the ultrasound identifies cholelithiasis. The patient is admitted, and surgic al consult was obtained for further evaluation and treatment. PAST MEDICAL HISTORY: 1. Abdominal pain. 2. Pancreatitis. 3. Cholelithiasis. 4. Leukocytosis. 5. Transaminitis. PAST SURGICAL HISTORY: Denies. MEDICATIONS: Denies. ALLERGIES: DENIES. SOCIAL HISTORY: Denies alcohol, drugs, or tobacco. 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 FAMILY HISTORY: Noncontributory. REVIEW OF SYSTEMS: A 12-point review of systems negative unless addressed in the HPI. PHYSICAL EXAMINATION: VITAL SIGNS: Temperature is 98.2, pulse 80s to 100s, blood pressure 107/73, saturating 100%. GENERAL: No acute distress; however, uncomfortable. HEENT: Pupils equal, reactive. No scleral icterus. Mucous membranes are somewhat dry. NECK: No crepitus, no JVD. Trachea midline. PULMONARY: Normal respiratory effort. No wheezing. CARDIAC: S1, S2 present. ABDOMEN: Soft, tender in the epigastric and left upper quadrant. No rebound, no guarding. Negativ e Segura's. EXTREMITIES: No edema. VASCULAR: Cap refill less than 2 seconds. NEUROLOGIC: Alert, oriented, moves all 4 extremities grossly. LABORATORY AND RADIOGRAPHIC: As per chart and HPI. ASSESSMENT AND PLAN: Kandi Barrow is a 26-year-old female. 1. Pancreatitis, probably secondary to cholelithiasis. Continue n.p.o., IV fluids, medical optimiz ation, and pain control. She will benefit from eventual laparoscopic cholecystectomy. 2. Cholelithiasis without evidence of cholecystitis. As above. 3. Transaminitis secondary to passed stone. Treatment as above. MRCP does not identify biliary du ctal stones. 3. Leukocytosis, improving. 4. Anemia, probably dilutional. Continue to monitor. 5. Hypoalbuminemia secondary to acute process. Will benefit from eventual nutritional optimization . Thank you very much for consulting me in this patient's care. Dictated By: ROLANDO COTTER/DANNI Conf#: [id number] DID#: [id number]
[2016-09-03] MEDS: PIPER-TAZO 3.375 GM IV (PMX) 100 ML IVPB SCH ×2 (05:15→13:31)
[2016-09-03 06:03] LABS: BASOPHILS % 0.3 % (0.0-2.0); EOSINOPHILS # 1.5 10^3/ul (0.0-0.5); EOSINOPHILS % 14.3 % (0.0-7.0); HEMATOCRIT 33.5 % (37.0-47.0); HEMOGLOBIN 11.3 g/dl (12.0-16.0); LYMPHOCYTES # 3.5 10^3/ul (0.8-2.9); LYMPHOCYTES % 32.6 % (15.0-51.0); MEAN CORPUSCULAR HEMOGLOBIN 30.1 pg (29.0-33.0); MEAN CORPUSCULAR HGB CONC 33.8 g/dl (32.0-37.0); MEAN CORPUSCULAR VOLUME 88.9 fl (82.0-101.0); MEAN PLATELET VOLUME 9.1 fl (7.4-10.4); MONOCYTE # 0.7 10^3/ul (0.3-0.9); MONOCYTES % 6.9 % (0.0-11.0); NEUTROPHILS % 45.9 % (39.0-77.0); PLATELET COUNT 252 10^3/UL (140-440); RED BLOOD COUNT 3.77 10^6/ul (4.20-5.40); RED CELL DISTRIBUTION WIDTH 12.4 % (11.5-14.5); UNCORRECTED WBC 10.8 10^3/ul (4.8-10.8); WHITE BLOOD COUNT 10.8 10^3/ul (4.8-10.8)
[2016-09-03 06:06] LABS: IRON 47 ug/dl (35-150)
[2016-09-03 06:16] LABS: TOTAL IRON BINDING CAPACITY 272 ug/dl (241-421)
[2016-09-03 06:24] LABS: CONDITION 1
[2016-09-03] MEDS: D5W-0.45 NACL + KCL 10 MEQ 1,000 ML IV SCH ×3 (06:51→19:27)
[2016-09-03 07:28] LABS: ALBUMIN 3.2 g/dl (3.3-4.9); POTASSIUM 3.8 mmol/L (3.5-5.1)
[2016-09-03 07:31] LABS: BILIRUBIN,INDIRECT 0.1 mg/dl (0-1.1); BILIRUBIN,TOTAL 0.1 mg/dl (0.2-1.3); CALCIUM 8.4 mg/dl (8.4-10.2); CREATININE 0.43 mg/dl (0.44-1.00); TOTAL PROTEIN 6.4 g/dl (6.1-8.1)
[2016-09-03 08:00] VITALS: BP 100/59; PULSE 61; RESP 18
--- NOTE | 2016-09-03 08:46 | CONS ---
Date/Time of Note Date/Time of Note DATE: 09/03/16 TIME: 08:45 Assessment/Plan Assessment/Plan Chief Complaint/Hosp Course Problems: Additional Assessment/Plan Abdominal pain Nausea Vomiting * Evaluate for choledocholithiasis versus cholelithiasis * Gallbladder ultrasound 09-01-16: Cholelithiasis. * MRCP : The gallbladder is filled with stones and partially contracted and this accentuates the appearance of the gallbladder wall without definite visible surrounding pericholecystic fluid or inflammation. There is no intrahepatic or extrahepatic biliary ductal dilatation. The MRCP images are slightly distorted by motion with no gross evidence for choledocholithiasis. The common duct is diminutive in diameter. The pancreatic duct is also diminutive and not well visualized. * N.p.o. * IVF hydration * Monitor labs * Surgery following Anemia * Stool OB * Iron profile Further recommendations depend on clinical course Patient seen in collaboration with Dr. Fisher Consultation Date/Type/Reason Admit Date/Time Aug 31, 2016 at 21:49 Initial Consult Date 08/31/16 Type of Consultation: Gastroenterology 24 HR Interval Summary Free Text/Dictation Denies abdominal pain Lipase improving Cholecystectomy planned as inpatient Exam/Review of Systems Vital Signs Vitals Vital Signs Date Time Temp Pulse Resp B/P Pulse Ox O2 Delivery O2 Flow Rate FiO2 09/02/16 20:00 97.4 53 20 96/64 99 Room Air Intake and Output 09/02/16 09/02/16 09/03/16 15:00 23:00 07:00 Intake Total 1000 ml 575 ml 975 ml Balance 1000 ml 575 ml 975 ml Exam Constitutional: alert, oriented, well developed Psych: nl mood/affect, no complaints Head: atraumatic Eyes: EOMI, nl conjunctiva, nl lids, nl sclera ENMT: nl external ears & nose, nl lips & teeth, nl nasal mucosa & septum Gastrointestinal: soft, non tender Musculoskeletal: nl extremities to inspection Neurological: PORTER SAMPLE CASE II-XII intact Results Result Diagram: 09/03/16 0435 09/03/165 Results 24 hrs Laboratory Tests Test 09/03/16 04:35 Alanine Aminotransferase (ALT/SGPT) 103 H Albumin 3.2 L Albumin/Globulin Ratio 1.00 Alkaline Phosphatase 72 Amylase Level 110 # Anion Gap 15 Aspartate Amino Transf (AST/SGOT) 29 Basophils # 0.0 Basophils % 0.3 Blood Urea Nitrogen 5 L Calcium Level 8.4 Carbon Dioxide Level 23 Chloride Level 107 Creatinine 0.43 L Direct Bilirubin 0.00 Eosinophils # 1.5 H Eosinophils % 14.3 H Globulin 3.20 Glucose Level 96 Hematocrit 33.5 L Hemoglobin 11.3 L Indirect Bilirubin 0.1 Iron Level 47 Lipase 498 H Lymphocytes # 3.5 H Lymphocytes % 32.6 Mean Corpuscular Hemoglobin 30.1 Mean Corpuscular Hemoglobin Concent 33.8 Mean Corpuscular Volume 88.9 Mean Platelet Volume 9.1 Monocytes # 0.7 Monocytes % 6.9 Neutrophils # 5.0 Neutrophils % 45.9 Nucleated Red Blood Cells # 0.0 Nucleated Red Blood Cells % 0.0 Percent Iron Saturation 17 L Platelet Count 252 Potassium Level 3.8 Red Blood Count 3.77 L Red Cell Distribution Width 12.4 Sodium Level 141 Total Bilirubin 0.1 L Total Iron Binding Capacity 272 Total Protein 6.4 White Blood Count 10.8 Medications Medications Current Medications Piperacillin Sod/ Tazobactam Sod (Zosyn 3.375gm/ 100 ml (Pmx)) 100 ml @ 200 mls /hr Q8 IVPB Last administered on 09/03/16 05:15; Admin Dose 200 MLS/HR; Start 09/01/16 at 14:00 Ondansetron HCl (Zofran Inj) 4 mg Q6H PRN IV NAUSEA AND/OR VOMITING Last administered on 09/02/16 19:59; Admin Dose 4 MG; Start 09/01/16 at 12:00 Morphine Sulfate 3 mg 3 mg Q4H PRN IV Pain Last administered on 09/01/16 19:51 ; Admin Dose 3 MG; Start 09/01/16 at 12:00 Potassium Chloride/Dextrose/ Sod Cl (D5-1/2ns + KCl 10 Meq) 1,000 ml @ 125 mls/ hr Q8H IV Last administered on 09/03/16 06:51; Admin Dose 125 MLS/HR; Start 09/01/16 at 12:00 Tramadol HCl (Ultram) 50 mg Q6H PRN PO Pain; Start 09/01/16 at 12:00 Famotidine (Pepcid Iv) 20 mg BID IV Last administered on 09/02/16 22:10; Admin Dose 20 MG; Start 09/01/16 at 21:00 Ketorolac Tromethamine (Toradol) 30 mg Q6H PRN IV PAIN Last administered on 09/02t 17:42; Admin Dose 30 MG; Start 09/02/16 at 16:30; Stop 09/05/16 at 16:30 LEBRON RODRIGUEZ Sep 03, 2016 08:46
[2016-09-03] MEDS: FAMOTIDINE 20 MG INJ IV SCH ×2 (09:02→20:53)
[2016-09-03] MEDS: ONDANSETRON 4 MG INJ IV PRN (12:37)
--- NOTE | 2016-09-03 16:27 | PN ---
Date/Time of Note Date/Time of Note DATE: 09/03/16 TIME: 16:25 Assessment/Plan Lines/Catheters IV Catheter Type (from [facility]): Peripheral IV Clay in Place (from [facility]): No Assessment/Plan Chief Complaint/Hosp Course 1. Pancreatitis probably 2nd Cholelithiasis. Improving -ivf -medical optimization -pain control -lap chlole possibly on Sunday if continues to improve 2. Cholelithiasis -eventual cholecystectomy after resolution of pancreatitis 3. Transaminitis 2nd passed stone. MRCP negative for choledocholithiasis -as above 4. Leukocytosis resolved 5. Anemia, ? dilutional -monitor 6. Hypoalbuminemia 2nd acute process -eventual nutritional optimization Thank you, Problems: Subjective 24 Hr Interval Summary No f/c. No n/v. No cp/sob. No cough. No baca/dizzy/visual or neuro changes. No dysuria. Bowel function. No bloating. Feeling better and less anxious. Exam/Review of Systems Vital Signs Vitals Vital Signs Date Time Temp Pulse Resp B/P Pulse Ox O2 Delivery O2 Flow Rate FiO2 09/03/16 08:00 98.8 61 18 100/59 99 Room Air Intake and Output 09/02/16 09/02/16 09/03/16 15:00 23:00 07:00 Intake Total 1000 ml 575 ml 975 ml Balance 1000 ml 575 ml 975 ml Exam Free Text/Dictation Constitutional: alert, oriented, No distress Psych: anxiety Head: atraumatic, normocephalic Eyes: EOMI, PERRL, nl conjunctiva, No icteric ENMT: mucosa pink and moist, nl external ears & nose, nl lips & teeth Neck: non-tender, supple, No jvd Respiratory: normal air movement, No congested cough Cardiovascular: regular rate and rhythm, No edema Gastrointestinal: soft, tender (epigastric and left upper quadrant), No distended, No rebound or guarding Musculoskeletal: nl extremities to inspection, nl gait and stance, No joint tenderness Extremities: normal pulses, No calf tenderness, No cyanosis Neurological: nl mental status, nl speech, nl strength Skin: nl turgor, No diaphoresis, No rash or lesions Lymph: nl lymph nodes Results Result Diagram: 09/03/16 0435 09/03/16 0435 ROLANDO NICOLE MD Sep 03, 2016 16:27
--- NOTE | 2016-09-03 16:53 | PN ---
Date/Time of Note Date/Time of Note DATE: 09/03/16 TIME: 16:50 Assessment/Plan VTE Prophylaxis VTE Prophylaxis Intervention: SCD's Lines/Catheters IV Catheter Type (from [facility]rs): Peripheral IV Urinary Cath still in place: No Assessment/Plan Assessment/Plan PROBLEMS: Acute pancreatitis, most probably gallstone pancreatitis: improving * MRI negative for choledocholithiasis SIRS 2/2 Pancreatitis Symptomatic cholelithiasis Acute Transaminitis: improving Probable Choledocholithiasis causing above: Patient has likely passed stone PLAN: Continue IVF / advance diet to clears/ Pain control / Supportive care Planned for cholecystectomy once Pancreatitis resolves Will D/c abx Continue to trend Lipase levels till resolution Subjective 24 Hr Interval Summary Free Text/Dictation Patient doing well Hungry no more pain today so far Exam/Review of Systems Vital Signs Vitals Vital Signs Date Time Temp Pulse Resp B/P Pulse Ox O2 Delivery O2 Flow Rate FiO2 09/03/16 08:00 98.8 61 18 100/59 99 Room Air Intake and Output 09/02/16 09/02/16 09/03/16 15:00 23:00 07:00 Intake Total 1000 ml 575 ml 975 ml Balance 1000 ml 575 ml 975 ml Exam Constitutional: alert, oriented Psych: nl mood/affect Head: atraumatic, normocephalic Eyes: PERRL, No icteric ENMT: mucosa pink and moist Neck: supple Respiratory: clear to auscultation, normal air movement Cardiovascular: nl pulses, regular rate and rhythm Gastrointestinal: bowel sounds, non-tender, soft Musculoskeletal: nl extremities to inspection Results Result Diagram: 09/03/16 0435 09/03/16 0435 Results 24 hrs Laboratory Tests Test 09/03/16 04:35 Alanine Aminotransferase (ALT/SGPT) 103 H Albumin 3.2 L Albumin/Globulin Ratio 1.00 Alkaline Phosphatase 72 Amylase Level 110 # Anion Gap 15 Aspartate Amino Transf (AST/SGOT) 29 Basophils # 0.0 Basophils % 0.3 Blood Urea Nitrogen 5 L Calcium Level 8.4 Carbon Dioxide Level 23 Chloride Level 107 Creatinine 0.43 L Direct Bilirubin 0.00 Eosinophils # 1.5 H Eosinophils % 14.3 H Globulin 3.20 Glucose Level 96 Hematocrit 33.5 L Hemoglobin 11.3 L Indirect Bilirubin 0.1 Iron Level 47 Lipase 498 H Lymphocytes # 3.5 H Lymphocytes % 32.6 Mean Corpuscular Hemoglobin 30.1 Mean Corpuscular Hemoglobin Concent 33.8 Mean Corpuscular Volume 88.9 Mean Platelet Volume 9.1 Monocytes # 0.7 Monocytes % 6.9 Neutrophils # 5.0 Neutrophils % 45.9 Nucleated Red Blood Cells # 0.0 Nucleated Red Blood Cells % 0.0 Percent Iron Saturation 17 L Platelet Count 252 Potassium Level 3.8 Red Blood Count 3.77 L Red Cell Distribution Width 12.4 Sodium Level 141 Total Bilirubin 0.1 L Total Iron Binding Capacity 272 Total Protein 6.4 White Blood Count 10.8 Medications Medications Current Medications Piperacillin Sod/ Tazobactam Sod (Zosyn 3.375gm/ 100 ml (Pmx)) 100 ml @ 200 mls /hr Q8 IVPB Last administered on 09/03/16 13:31; Admin Dose 200 MLS/HR; Start 09/01/16 at 14:00 Ondansetron HCl (Zofran Inj) 4 mg Q6H PRN IV NAUSEA AND/OR VOMITING Last administered on 09/03/16 12:37; Admin Dose 4 MG; Start 09/01/16 at 12:00 Morphine Sulfate 3 mg 3 mg Q4H PRN IV Pain Last administered on 09/01/16 19:51 ; Admin Dose 3 MG; Start 09/01/16 at 12:00 Potassium Chloride/Dextrose/ Sod Cl (D5-1/2ns + KCl 10 Meq) 1,000 ml @ 125 mls/ hr Q8H IV Last administered on 09/03/16 06:51; Admin Dose 125 MLS/HR; Start 09/01/16 at 12:00 Tramadol HCl (Ultram) 50 mg Q6H PRN PO Pain; Start 09/01/16 at 12:00 Famotidine (Pepcid Iv) 20 mg BID IV Last administered on 09/03/16 09:02; Admin Dose 20 MG; Start 09/01/16 at 21:00 Ketorolac Tromethamine (Toradol) 30 mg Q6H PRN IV PAIN Last administered on 09/02 17:42; Admin Dose 30 MG; Start 09/02/16 at 16:30; Stop 09/05/16 at 16:30 PALLAVI EVERETT Sep 03, 2016 16:53
[2016-09-03 19:51] VITALS: BP 100/59; RESP 16
[2016-09-04] MEDS: D5W-0.45 NACL + KCL 10 MEQ 1,000 ML IV SCH ×3 (03:02→20:00)
[2016-09-04 07:47] LABS: BASOPHILS % 0.5 % (0.0-2.0); EOSINOPHILS # 1.3 10^3/ul (0.0-0.5); EOSINOPHILS % 14.8 % (0.0-7.0); HEMATOCRIT 34.2 % (37.0-47.0); HEMOGLOBIN 11.5 g/dl (12.0-16.0); LYMPHOCYTES # 3.1 10^3/ul (0.8-2.9); LYMPHOCYTES % 37.1 % (15.0-51.0); MEAN CORPUSCULAR HEMOGLOBIN 29.9 pg (29.0-33.0); MEAN CORPUSCULAR HGB CONC 33.6 g/dl (32.0-37.0); MEAN CORPUSCULAR VOLUME 89.1 fl (82.0-101.0); MEAN PLATELET VOLUME 9.5 fl (7.4-10.4); MONOCYTE # 0.6 10^3/ul (0.3-0.9); MONOCYTES % 7.5 % (0.0-11.0); NEUTROPHIL # 3.4 10^3/ul (1.6-7.5); NEUTROPHILS % 40.1 % (39.0-77.0); PLATELET COUNT 267 10^3/UL (140-440); RED BLOOD COUNT 3.84 10^6/ul (4.20-5.40); RED CELL DISTRIBUTION WIDTH 12.6 % (11.5-14.5); UNCORRECTED WBC 8.5 10^3/ul (4.8-10.8); WHITE BLOOD COUNT 8.5 10^3/ul (4.8-10.8)
[2016-09-04 07:50] LABS: CONDITION 1
[2016-09-04 07:53] VITALS: BP 94/52; RESP 16
[2016-09-04 08:09] LABS: ALBUMIN 3.3 g/dl (3.3-4.9)
[2016-09-04 08:12] LABS: ALBUMIN/GLOBULIN RATIO 1.03; BILIRUBIN,INDIRECT 0.2 mg/dl (0-1.1); BILIRUBIN,TOTAL 0.2 mg/dl (0.2-1.3); CALCIUM 8.5 mg/dl (8.4-10.2); CREATININE 0.46 mg/dl (0.44-1.00); TOTAL PROTEIN 6.5 g/dl (6.1-8.1)
[2016-09-04] MEDS: FAMOTIDINE 20 MG INJ IV SCH ×2 (10:20→21:35)
--- NOTE | 2016-09-04 13:41 | PN ---
Date/Time of Note Date/Time of Note DATE: 09/04/16 TIME: 13:40 Assessment/Plan VTE Prophylaxis VTE Prophylaxis Intervention: SCD's Lines/Catheters IV [facility] (from [facility]): Peripheral IV Urinary Cath still in place: No Assessment/Plan Chief Complaint/Hosp Course 1. Acute pancreatitis, most probably gallstone pancreatitis, as the patient has evidence of cholelithiasis. Largely resolved. General surgery and gastroenterology are following the patient. Plan for cholecystectomy. 2. Symptomatic cholelithiasis. Continue pain control. MRCP negative for any underlying choledocholithiasis. Patient scheduled for cholecystectomy on 2016. 3. Transaminitis. Continue management as per #1 and 2. Avoid hepatotoxic medications. 4. Systemic inflammatory response syndrome with leukocytosis and tachycardia, most probably secondary to #1. Rossi cultures negative. Status post IV antibiotics. 5. Fluids, electrolytes and nutrition. Clear liquids. Continue IV fluids. 6. Deep venous thrombosis prophylaxis. Bilateral sequential compression devices. 7. Gastrointestinal prophylaxis with histamine 2 receptor blockers. PLAN: Continue pain control. Continue IV fluids. Await cholecystectomy. Case discussed with Dr. Maria. Problems: Subjective 24 Hr Interval Summary Free Text/Dictation Denies any abdominal pain, nausea, or vomiting. Exam/Review of Systems Vital Signs Vitals Vital Signs Date Time Temp Pulse Resp B/P Pulse Ox O2 Delivery O2 Flow Rate FiO2 09/04/16 07:53 98.5 74 16 94/52 100 09/03/16 08:00 Room Air Intake and Output 09/03/16 09/03/16 09/04/16 15:00 23:00 07:00 Intake Total 100 ml 1290 ml 2100 ml Balance 100 ml 1290 ml 2100 ml Exam GENERAL: This is a well-built, well-nourished female lying in bed, in no apparent distress. HEENT: Head normocephalic and atraumatic. Eyes, anicteric sclerae. Conjunctivae clear. ENT: Nasal septum is midline. Oral mucosa is dry. NECK: Supple. No JVD noticed. RESPIRATORY: Bilaterally clear to auscultation. No adventitious breath sounds heard. No use of accessory muscles of respiration. CARDIAC: Regular rate and rhythm. No murmur is heard. ABDOMEN: Soft. Nontender. Bowel sounds positive in all 4 quadrants. No guarding. GENITOURINARY: Deferred. EXTREMITIES: No cyanosis, no clubbing, no edema. Peripheral pulses palpable. NEUROLOGIC: The patient is awake, alert and oriented. Cranial nerves are grossly intact. Results Result Diagram: 09/04/16 0545 09/04/16 0545 Results 24 hrs Laboratory Tests Test 09/03/16 17:18 09/04/16 05:45 Stool Occult Blood NEGATIVE Alanine Aminotransferase (ALT/SGPT) 83 H Albumin 3.3 Albumin/Globulin Ratio 1.03 Alkaline Phosphatase 68 Amylase Level 75 Anion Gap 16 Aspartate Amino Transf (AST/SGOT) 20 Basophils # 0.0 Basophils % 0.5 Blood Urea Nitrogen 3 L Calcium Level 8.5 Carbon Dioxide Level 24 Chloride Level 107 Creatinine 0.46 Direct Bilirubin 0.00 Eosinophils # 1.3 H Eosinophils % 14.8 H Globulin 3.20 Glucose Level 90 Hematocrit 34.2 L Hemoglobin 11.5 L Indirect Bilirubin 0.2 Lipase 278 Lymphocytes # 3.1 H Lymphocytes % 37.1 Mean Corpuscular Hemoglobin 29.9 Mean Corpuscular Hemoglobin Concent 33.6 Mean Corpuscular Volume 89.1 Mean Platelet Volume 9.5 Monocytes # 0.6 Monocytes % 7.5 Neutrophils # 3.4 Neutrophils % 40.1 Nucleated Red Blood Cells # 0.0 Nucleated Red Blood Cells % 0.0 Platelet Count 267 Potassium Level 4.0 Red Blood Count 3.84 L Red Cell Distribution Width 12.6 Sodium Level 143 Total Bilirubin 0.2 Total Protein 6.5 White Blood Count 8.5 # Medications Medications Current Medications Ondansetron HCl (Zofran Inj) 4 mg Q6H PRN IV NAUSEA AND/OR VOMITING Last administered on 09/03/16 12:37; Admin Dose 4 MG; Start 09/01/16 at 12:00 Morphine Sulfate 3 mg 3 mg Q4H PRN IV Pain Last administered on 09/01/16 19:51 ; Admin Dose 3 MG; Start 09/01/16 at 12:00 Potassium Chloride/Dextrose/ Sod Cl (D5-1/2ns + KCl 10 Meq) 1,000 ml @ 125 mls/ hr Q8H IV Last administered on 09/04/16 03:02; Admin Dose 125 MLS/HR; Start 09/01/16 at 12:00 Tramadol HCl (Ultram) 50 mg Q6H PRN PO Pain; Start 09/01/16 at 12:00 Famotidine (Pepcid Iv) 20 mg BID IV Last administered on 09/04/16 10:20; Admin Dose 20 MG; Start 09/01/16 at 21:00 Ketorolac Tromethamine (Toradol) 30 mg Q6H PRN IV PAIN Last administered on 09/02 17:42; Admin Dose 30 MG; Start 09/02/16 at 16:30; Stop 09/05/16 at 16:30 HOUSTON LANDON NP Sep 04, 2016 13:41
[2016-09-04 20:00] VITALS: BP 97/52; RESP 16
--- NOTE | 2016-09-04 22:34 | PN ---
Date/Time of Note Date/Time of Note DATE: 09/04/16 TIME: 22:33 Assessment/Plan Lines/Catheters IV Catheter Type (from [facility] Peripheral IV Clay in Place (from Nrs): No Assessment/Plan Chief Complaint/Hosp Course 1. Pancreatitis probably 2nd Cholelithiasis. Improved -ivf -medical optimization -pain control -lap chlole tomorrow 2. Cholelithiasis -lap shane in am 3. Transaminitis 2nd passed stone. MRCP negative for choledocholithiasis -as above -liver bx 4. Leukocytosis resolved 5. Anemia, ? dilutional -monitor 6. Hypoalbuminemia 2nd acute process -eventual nutritional optimization Thank you, Problems: Subjective 24 Hr Interval Summary No f/c. No n/v. No cp/sob. No cough. No baca/dizzy/visual or neuro changes. No dysuria. Bowel function. No bloating. Exam/Review of Systems Vital Signs Vitals Vital Signs Date Time Temp Pulse Resp B/P Pulse Ox O2 Delivery O2 Flow Rate FiO2 09/04/16 20:00 98.9 66 16 97/52 99 09/03/16 08:00 Room Air Intake and Output 09/03/16 09/03/16 09/04/16 15:00 23:00 07:00 Intake Total 100 ml 1290 ml 2100 ml Balance 100 ml 1290 ml 2100 ml Exam Free Text/Dictation Constitutional: alert, oriented, No distress Psych: anxiety Head: atraumatic, normocephalic Eyes: EOMI, PERRL, nl conjunctiva, No icteric ENMT: mucosa pink and moist, nl external ears & nose, nl lips & teeth Neck: non-tender, supple, No jvd Respiratory: normal air movement, No congested cough Cardiovascular: regular rate and rhythm, No edema Gastrointestinal: soft, tender (epigastric and left upper quadrant), No distended, No rebound or guarding Musculoskeletal: nl extremities to inspection, nl gait and stance, No joint tenderness Extremities: normal pulses, No calf tenderness, No cyanosis Neurological: nl mental status, nl speech, nl strength Skin: nl turgor, No diaphoresis, No rash or lesions Lymph: nl lymph nodes Results Result Diagram: 09/04/16 0545 09/04/16 0545 ROLANDO NICOLE MD Sep 04, 2016 22:34
[2016-09-05] VITALS (24 sets, daily range): BP systolic 98–116; BP diastolic 52–63; PULSE 64–100; RESP 15–34
[2016-09-05] MEDS: D5W-0.45 NACL + KCL 10 MEQ 1,000 ML IV SCH ×4 (01:39→21:05)
[2016-09-05 05:38] LABS: BASOPHILS % 0.5 % (0.0-2.0); EOSINOPHILS # 1.2 10^3/ul (0.0-0.5); EOSINOPHILS % 13.6 % (0.0-7.0); HEMOGLOBIN 12.3 g/dl (12.0-16.0); LYMPHOCYTES # 3.6 10^3/ul (0.8-2.9); LYMPHOCYTES % 41.8 % (15.0-51.0); MEAN CORPUSCULAR HEMOGLOBIN 30.2 pg (29.0-33.0); MEAN CORPUSCULAR HGB CONC 34.2 g/dl (32.0-37.0); MEAN CORPUSCULAR VOLUME 88.3 fl (82.0-101.0); MEAN PLATELET VOLUME 9.2 fl (7.4-10.4); MONOCYTE # 0.6 10^3/ul (0.3-0.9); MONOCYTES % 7.3 % (0.0-11.0); NEUTROPHIL # 3.2 10^3/ul (1.6-7.5); NEUTROPHILS % 36.8 % (39.0-77.0); PLATELET COUNT 300 10^3/UL (140-440); RED BLOOD COUNT 4.08 10^6/ul (4.20-5.40); RED CELL DISTRIBUTION WIDTH 12.3 % (11.5-14.5); UNCORRECTED WBC 8.6 10^3/ul (4.8-10.8); WHITE BLOOD COUNT 8.6 10^3/ul (4.8-10.8)
[2016-09-05 05:49] LABS: MAGNESIUM 1.9 mg/dl (1.7-2.5); PHOSPHORUS 4.1 mg/dl (2.5-4.9)
[2016-09-05 05:52] LABS: ALBUMIN 3.5 g/dl (3.3-4.9)
[2016-09-05 05:53] LABS: POTASSIUM 3.8 mmol/L (3.5-5.1)
[2016-09-05 05:55] LABS: ALBUMIN/GLOBULIN RATIO 1.02; BILIRUBIN,INDIRECT 0.2 mg/dl (0-1.1); BILIRUBIN,TOTAL 0.2 mg/dl (0.2-1.3); CREATININE 0.45 mg/dl (0.44-1.00); TOTAL PROTEIN 6.9 g/dl (6.1-8.1)
[2016-09-05 05:56] LABS: CALCIUM 8.6 mg/dl (8.4-10.2)
[2016-09-05 06:04] LABS: CONDITION 1
[2016-09-05] MEDS: FAMOTIDINE 20 MG INJ IV SCH ×2 (08:25→20:52)
[2016-09-05] MEDS ORDERED: LIDOCAINE 1% (MPF) 30 ML INJ ONE (09:03)
[2016-09-05] MEDS ORDERED: BUPIVACAINE 0.25%/EPI (SDV) 30 ML INJ ONE (09:03)
[2016-09-05] MEDS ORDERED: MIDAZOLAM 1 MG/ML 2 ML INJ ONE (09:45)
[2016-09-05] MEDS ORDERED: HYDROmorphONE (0.2 MG/ML) 10ML SYG IV PRN (10:00)
[2016-09-05] MEDS ORDERED: morphine (1 MG/ML) 10ML SYRINGE IV PRN (10:00)
[2016-09-05] MEDS ORDERED: ONDANSETRON 4 MG INJ IV PRN (10:00)
[2016-09-05] MEDS ORDERED: DIPHENHYDRAMINE 50 MG INJ IV PRN (10:00)
[2016-09-05] MEDS ORDERED: MEPERIDINE 25 MG INJ IV PRN (10:00)
[2016-09-05] MEDS ORDERED: LIDOCAINE 1% (MPF) 30 ML INJ INJ ONE (10:39)
[2016-09-05] MEDS ORDERED: BUPIVACAINE 0.25%/EPI (SDV) 30 ML INJ INJ ONE (10:39)
[2016-09-05] MEDS ORDERED: ROCURONIUM 50 MG INJ ONE (10:48)
[2016-09-05] MEDS ORDERED: NEOSTIGMINE 3 MG/3 ML SYRINGE ONE (10:48)
[2016-09-05] MEDS ORDERED: PROPOFOL 20 ML ONE (10:48)
[2016-09-05] MEDS ORDERED: LIDOCAINE 2% (SDV) 5 ML INJ ONE (10:48)
[2016-09-05] MEDS ORDERED: GLYCOPYRROLATE 0.4 MG INJ ONE (10:48)
[2016-09-05] MEDS ORDERED: ONDANSETRON 4 MG INJ ONE (10:48)
[2016-09-05] MEDS ORDERED: CEFAZOLIN 1 GM INJ ONE (10:55)
[2016-09-05] MEDS: HYDROmorphONE (0.2 MG/ML) 10ML SYG IV PRN ×2 (11:36→11:50)
[2016-09-05] MEDS: ONDANSETRON 4 MG INJ IV PRN ×3 (11:38→21:37)
--- NOTE | 2016-09-05 12:02 | OPR ---
Date/Time of Note Date/Time of Note DATE: 09/05/16 TIME: 11:49 Operative Report Procedure Date: Sep 05, 2016 Preoperative Diagnosis Gallstone pancreatitis Transaminitis Postoperative Diagnosis Gallstone pancreatitis Transaminitis Operation Performed 1. 3 port laparoscopic cholecystectomy 2. Laparoscopic liver wedge resection biopsy 3. Local anesthetic [place], [id number] 4. Laparoscopic guided transversus abdominis plane block Surgeon: ROLANDO NICOLE MD Anesthesia: general (+ Local + Regional), other Anesthesiologist: GINO VALENTINE MD Estimated Blood Loss: minimal Specimens GB Liver Tubes/Drains None Complications: None Indications Per notes. Risks include but are not limited to bleeding, infection, abscess, seroma, damage to intestines, damage to the liver, damage to biliary tree, hernia formation, chronic pain, biloma, need for reoperations or further surgeries, [place] , stroke, PE, DVT, pneumonia, organ failures, or even . Procedure Description Patient was brought and placed supine on the operating table SCDs were placed, preoperative antibiotics were administered, all pressure points were well-padded , and after induction of anesthesia patient was prepped and draped in usual sterile fashion and timeout was performed. Incision was made in the supraumbilical region, Veress was safely inserted, and after a negative SIP test , abdomen was insufflated to 15mmHg. Veress was removed and 5mm port was safely inserted. Laparoscopy was performed with a 5 mm 30 scope. No injuries were identified. The liver looks somewhat abnormal color. Gallbladder is without evidence of infection. 12 mm port is placed in subxiphoid under direct visualization followed by another 5 mm port in the right upper quadrant. All port sites were injected with quarter percent Marcaine with epi and 1% lidocaine prior to any incisions. Bilateral transversus abdominis plane block was performed under laparoscopic visualization to aid with pain control intra-and postoperatively. Patient was placed in reverse Trendelenburg and right side up on gallbladder was retracted superolaterally. Using electrocautery and blunt dissection I was able to identify the cystic artery and cystic duct. The duct tapered into the gallbladder. Full critical angle view was identified. Both structures were clipped twice proximally and once distally and transected. The gallbladder was taken off the liver with electrocautery. Hemostasis was obtained. Gallbladder was placed in an Endo Catch bag and removed through the subxiphoid port site. There was complete hemostasis. Due to the abnormality of the liver decision was made to perform liver wedge resection which was done with electrocautery and scissor with complete hemostasis right after. The specimen was sent to pathology for further evaluation. 12 mm made port site fascia was closed with Endo Close of an 0 Vicryl in a [id number] manner. Ports and CO2 were removed under direct visualization. Next complete hemostasis. Wounds were thoroughly irrigated skin was closed with 4-0 Monocryl in subcuticular fashion. Dermabond was applied. Patient was extubated and transferred to recovery room in stable condition and all counts were correct and the end of the operation 2. ROLANDO NICOLE MD Sep 05, 2016 11:59
--- NOTE | 2016-09-05 12:08 | PN ---
Date/Time of Note Date/Time of Note DATE: 09/05/16 TIME: 12:07 Assessment/Plan VTE Prophylaxis VTE Prophylaxis Intervention: SCD's Lines/Catheters [facility] (from [facility]): Peripheral IV Urinary Cath still in place: No Assessment/Plan Chief Complaint/Hosp Course 1. Acute pancreatitis, most probably gallstone pancreatitis, as the patient has evidence of cholelithiasis. Largely resolved. General surgery and gastroenterology are following the patient. S/P lap cholecystectomy . 2. Symptomatic cholelithiasis. S/P lap cholecystectomy on 09/05/2016. 3. Transaminitis. Improving. Avoid hepatotoxic medications. 4. S/P systemic inflammatory response syndrome with leukocytosis and tachycardia, most probably secondary to #1. Rossi cultures negative. Status post IV antibiotics. 5. Fluids, electrolytes and nutrition. Clear liquids. Continue IV fluids. Advance diet as per surgery. 6. Deep venous thrombosis prophylaxis. Bilateral sequential compression devices. 7. Gastrointestinal prophylaxis with histamine 2 receptor blockers. PLAN: Continue pain control. Continue IV fluids. Encourage early ambulation. Encourage frequent use of incentive spirometer. Case discussed with Dr. Maria. Problems: Subjective 24 Hr Interval Summary Free Text/Dictation S/P cholecystectomy. In pain. Exam/Review of Systems Vital Signs Vitals Vital Signs Date Time Temp Pulse Resp B/P Pulse Ox O2 Delivery O2 Flow Rate FiO2 09/05/16 11:37 70 27 104/52 99 Room Air 09/05/16 11:03 99.3 Intake and Output 09/04/16 09/04/16 09/05/16 15:00 23:00 07:00 Intake Total 1710 ml 1735 ml Balance 1710 ml 1735 ml Exam GENERAL: This is a well-built, well-nourished female lying in bed, in no apparent distress. HEENT: Head normocephalic and atraumatic. Eyes, anicteric sclerae. Conjunctivae clear. ENT: Nasal septum is midline. Oral mucosa is dry. NECK: Supple. No JVD noticed. RESPIRATORY: Bilaterally clear to auscultation. No adventitious breath sounds heard. No use of accessory muscles of respiration. CARDIAC: Regular rate and rhythm. No murmur is heard. ABDOMEN: Soft. Lap incisions with surgical glue. Stefany-incisional tenderness. GENITOURINARY: Deferred. EXTREMITIES: No cyanosis, no clubbing, no edema. Peripheral pulses palpable. NEUROLOGIC: The patient is awake, alert and oriented. Cranial nerves are grossly intact. Results Result Diagram: 09/05/1644609/05/16446 Results 24 hrs Laboratory Tests Test 09/05/16 04:47 Alanine Aminotransferase (ALT/SGPT) 67 Albumin 3.5 Albumin/Globulin Ratio 1.02 Alkaline Phosphatase 67 Amylase Level 75 Anion Gap 17 H Aspartate Amino Transf (AST/SGOT) 24 Basophils # 0.0 Basophils % 0.5 Blood Urea Nitrogen 3 L Calcium Level 8.6 Carbon Dioxide Level 23 Chloride Level 107 Creatinine 0.45 Direct Bilirubin 0.00 Eosinophils # 1.2 H Eosinophils % 13.6 H Globulin 3.40 H Glucose Level 98 Hematocrit 36.0 L Hemoglobin 12.3 Indirect Bilirubin 0.2 Lipase 210 Lymphocytes # 3.6 H Lymphocytes % 41.8 Magnesium Level 1.9 Mean Corpuscular Hemoglobin 30.2 Mean Corpuscular Hemoglobin Concent 34.2 Mean Corpuscular Volume 88.3 Mean Platelet Volume 9.2 Monocytes # 0.6 Monocytes % 7.3 Neutrophils # 3.2 Neutrophils % 36.8 L Nucleated Red Blood Cells # 0.0 Nucleated Red Blood Cells % 0.0 Phosphorus Level 4.1 Platelet Count 300 Potassium Level 3.8 Red Blood Count 4.08 L Red Cell Distribution Width 12.3 Sodium Level 143 Total Bilirubin 0.2 Total Protein 6.9 White Blood Count 8.6 Medications Medications Current Medications Ondansetron HCl (Zofran Inj) 4 mg Q6H PRN IV NAUSEA AND/OR VOMITING Last administered on 09/05/16 11:38; Admin Dose 4 MG; Start 09/01/16 at 12:00 Morphine Sulfate 3 mg 3 mg Q4H PRN IV Pain Last administered on 09/01/16 19:51 ; Admin Dose 3 MG; Start 09/01/16 at 12:00 Potassium Chloride/Dextrose/ Sod Cl (D5-1/2ns + KCl 10 Meq) 1,000 ml @ 125 mls/ hr Q8H IV Last administered on 09/05/16 01:39; Admin Dose 125 MLS/HR; Start 09/01/16 at 12:00 Tramadol HCl (Ultram) 50 mg Q6H PRN PO Pain; Start 09/01/16 at 12:00 Famotidine (Pepcid Iv) 20 mg BID IV Last administered on 09/05/16 08:25; Admin Dose 20 MG; Start 09/01/16 at 21:00 Ketorolac Tromethamine (Toradol) 30 mg Q6H PRN IV PAIN Last administered on 09/02 17:42; Admin Dose 30 MG; Start 09/02/16 at 16:30; Stop 09/05/16 at 16:30 HOUSTON LANDON NP Sep 05, 2016 12:08
[2016-09-05] MEDS: morphine 4 MG/ML VIAL IV PRN (15:10)
--- NOTE | 2016-09-05 18:40 | PN ---
Date/Time of Note Date/Time of Note DATE: 09/05/16 TIME: 18:39 Assessment/Plan Lines/Catheters IV [facility]ter Type (from [facility]): Peripheral IV Clay in Place (from Nrs): No Assessment/Plan Chief Complaint/Hosp Course 1. Pancreatitis probably 2nd Cholelithiasis. Improved -ivf -medical optimization -pain control -lap chlole tomorrow 2. Cholelithiasis -lap shane in am 3. Transaminitis 2nd passed stone. MRCP negative for choledocholithiasis -as above -liver bx 4. Leukocytosis resolved 5. Anemia, ? dilutional -monitor 6. Hypoalbuminemia 2nd acute process -eventual nutritional optimization Thank you, Late entry Problems: Subjective 24 Hr Interval Summary No f/c. No n/v. No cp/sob. No cough. No baca/dizzy/visual or neuro changes. No dysuria. Bowel function. No bloating. Exam/Review of Systems Vital Signs Vitals Vital Signs Date Time Temp Pulse Resp B/P Pulse Ox O2 Delivery O2 Flow Rate FiO2 09/05/16 16:00 99.0 71 18 106/63 97 Room Air Intake and Output 09/04/16 09/04/16 09/05/16 15:00 23:00 07:00 Intake Total 1710 ml 1735 ml Balance 1710 ml 1735 ml Exam Free Text/Dictation Constitutional: alert, oriented, No distress Psych: anxiety Head: atraumatic, normocephalic Eyes: EOMI, PERRL, nl conjunctiva, No icteric ENMT: mucosa pink and moist, nl external ears & nose, nl lips & teeth Neck: non-tender, supple, No jvd Respiratory: normal air movement, No congested cough Cardiovascular: regular rate and rhythm, No edema Gastrointestinal: soft, tender (epigastric and left upper quadrant), No distended, No rebound or guarding Musculoskeletal: nl extremities to inspection, nl gait and stance, No joint tenderness Extremities: normal pulses, No calf tenderness, No cyanosis Neurological: nl mental status, nl speech, nl strength Skin: nl turgor, No diaphoresis, No rash or lesions Lymph: nl lymph nodes Results Result Diagram: 09/05/16 0447 09/05/16 0447 ROLANDO NICOLE MD Sep 05, 2016 18:40
[2016-09-05] MEDS: traMADol 50 MG TAB PO PRN (21:51)
[2016-09-06] MEDS: D5W-0.45 NACL + KCL 10 MEQ 1,000 ML IV SCH (02:23)
[2016-09-06] MEDS: ONDANSETRON 4 MG INJ IV PRN (03:01)
[2016-09-06 06:40] LABS: ALBUMIN 3.7 g/dl (3.3-4.9); CHLORIDE 105 mmol/L (97-110)
[2016-09-06 06:41] LABS: POTASSIUM 3.4 mmol/L (3.5-5.1); SODIUM 143 mmol/L (135-144)
[2016-09-06 06:43] LABS: AMYLASE 61 U/L (11-123); ANION GAP 16 (8-16); CARBON DIOXIDE 25 mmol/L (21-31); CREATININE 0.44 mg/dl (0.44-1.00)
[2016-09-06 06:44] LABS: ALANINE AMINOTRANSFERASE 71 IU/L (13-69); ALBUMIN/GLOBULIN RATIO 1.05; ALKALINE PHOSPHATASE 74 IU/L (42-121); ASPARTATE AMINO TRANSFERASE 37 IU/L (15-46); BILIRUBIN,INDIRECT 0.2 mg/dl (0-1.1); BILIRUBIN,TOTAL 0.2 mg/dl (0.2-1.3); CALCIUM 8.7 mg/dl (8.4-10.2); GLUCOSE 108 mg/dl (70-220); TOTAL PROTEIN 7.2 g/dl (6.1-8.1)
[2016-09-06 06:47] LABS: PHOSPHORUS 4.2 mg/dl (2.5-4.9)
[2016-09-06 06:48] LABS: BLOOD UREA NITROGEN < 2 mg/dl (7-20); MAGNESIUM 1.9 mg/dl (1.7-2.5)
[2016-09-06 07:55] VITALS: BP 98/55; RESP 18
[2016-09-06] MEDS: FAMOTIDINE 20 MG INJ IV SCH (08:18)
[2016-09-06] MEDS: traMADol 50 MG TAB PO PRN ×2 (08:32→13:08)
[2016-09-06] MEDS ORDERED: POTASSIUM CHLORIDE (SR) 20 MEQ TAB PO STA (09:36)
--- NOTE | 2016-09-06 10:07 | PDOCDIS ---
Discharge Instructions DIAGNOSIS Discharge Diagnosis: Cholelithiasis. Status post lap cholecystectomy. CONDITION Patient Condition: Good HOME CARE INSTRUCTIONS: Diet Instructions: Regular FOLLOW UP/APPOINTMENTS Appointments Arcenio Ibarra MD Specialty: General Surgery Office Address: [address] [place] [address] [place] [address] Office OTHER ORDERS: Other Orders: 1. Regular diet as tolerated. 2. Keep incisions clean and dry. May shower. Avoid tub baths and swimming for 2 weeks. Use mild soap and pat dry the incisions. 3. Take medications as needed for pain. 4. Call the surgeon or go to the nearest ER if you have severe abdominal pain despite pain medications. 5. Call the surgeon or go to the nearest ER if you notice any bleeding or secretions coming out of the incision sites. Also call the surgeon if you notice any blood in stool, if you have persistent fevers, or any other unusual signs or symptoms. 6. Follow-up with the surgeon (Dr. Ibarra) in 7 days for incision check. 7. Avoid heavy lifting [more than 25 pounds] for 8 weeks. SCHOOL/WORK RELEASE May return to School/Work on: Sep 11, 2016 May return to School/Work with: With Restrictions (No heavy lifting [more than 25 pounds] for 8 weeks.) HOUSTON LANDON NP Sep 06, 2016 10:07
[2016-09-06] MEDS ORDERED: HYDR-906 PO (10:09)
--- NOTE | 2016-09-06 11:33 | DS ---
DATE OF ADMISSION: 08/31/2016 DATE OF DISCHARGE: 09/06/2016 FINAL DIAGNOSES: 1. Acute gallstone pancreatitis, resolved. 2. Symptomatic cholelithiasis. Status post laparoscopic cholecystectomy. 3. Transaminitis, resolved. 4. Status post systemic inflammatory response syndrome. CONSULTATIONS: 1. Dr. Arcenio Ibarra, General Surgery. 2. Galindo Santos, nurse practitioner for gastroenterology. HOSPITAL COURSE: This is a 26-year-old female with no significant past medical history who came to the emergency room with chief complaint of 1 day of severe epigastric abdominal pain with nausea and a few episodes of nonbloody, nonbilious vomiting. She denied any fevers, chills, chest pain, dyspnea, melena or hematochezia. In the emergency room[place] [id number]. The patient underwent a gallbladder ultrasound in the emergency room that showed cholelithiasis. Provide the patient's history of present illness and the diagnostic findings, a clinical decision was made to admit the patient to inpatient setting to have her further evaluated. The patient was admitted to inpatient medical/surgical floor. The patient was kept n.p.o. The patient was started on IV fluids. She was started on analgesics. A gastroenterology and surgery consult was called on this patient. The patient's pancreatitis was thought to be secondary to cholelithiasis. The patient denied any alcohol abuse. The patient did not have any evidence of hypertriglyceridemia. The patient's pancreatitis was treated with bowel rest. Once the patient's pancreatitis was improved, the patient underwent a laparoscopic cholecystectomy on 09/05/2016, with no immediate postoperative complications. The patient was started on a clear liquid diet, and the patient' s diet was advanced as tolerated to a regular consistency diet following the surgery. The patient was encouraged on early ambulation and frequent use of incentive spirometry. The patient was able to tolerate a regular consistency diet without any significant gastrointestinal symptoms. Upon admission, the patient had systemic inflammatory response syndrome with leukocytosis and tachycardia. Hence, the patient was started on empiric antibiotics. The patient had pancultures which were negative. Patient's leukocytosis resolved and the patient's antibiotics were discontinued. The patient also had underlying transaminitis upon admission, most probably secondary to underlying cholelithiasis. Hepatotoxic drugs were avoided on this patient. The patient's transaminitis improved throughout the patient's hospital course. The patient had a stable hospital course. The patient was cleared by consultants to be discharged home. The patient's abdominal pain is well controlled. The patient was able to tolerate a regular consistency diet without any significant gastrointestinal symptoms. DISCHARGE DISPOSITION/PLAN: The patient will be discharged home today. The patient was instructed to take a regular diet as tolerated. The patient was instructed to keep the incisions clean and dry. The patient was instructed that she may shower, but avoid tub baths and swimming for 2 weeks. She was instructed to use mild soap and pat dry the incision. She was instructed to take medications as needed for pain. She was instructed to call the surgeon or go to the nearest emergency room if she has severe abdominal pain despite pain medications. The patient was instructed to call the surgeon or go to the nearest emergency room if she notices any bleeding or secretions coming out of the incision sites, if she notices any blood in stool, if she has persistent fevers or any other unusual signs or symptoms. The patient was instructed to follow up with Dr. Ibarra in 7 days for incision check. She was instructed to avoid heavy lifting of more than 25 pounds for 8 weeks. She was instructed that she may return to work on 09/11/2016 with the restriction of no heavy lifting more than 25 pounds for at least 8 weeks. The patient verbalized understanding of her discharge instructions. CONDITION AT DISCHARGE: Stable. DISCHARGE MEDICATIONS: 1. [place] 5/325 one tablet p.o. q.6h. p.r.n. pain. DISCHARGE PHYSICAL EXAMINATION GENERAL: This is a well-built, well-nourished female lying in bed, in no apparent distress. HEENT: Head normocephalic and atraumatic. Eyes, anicteric sclerae. Conjunctivae clear. ENT: Nasal septum is midline. Oral mucosa is dry. NECK: Supple. No JVD noticed. RESPIRATORY: Bilaterally clear to auscultation. No adventitious breath sounds heard. No use of accessory muscles of respiration. CARDIAC: Regular rate and rhythm. No murmur is heard. ABDOMEN: Soft. Lap incisions with surgical glue. Stefany-incisional tenderness. GENITOURINARY: Deferred. EXTREMITIES: No cyanosis, no clubbing, no edema. Peripheral pulses palpable. NEUROLOGIC: The patient is awake, alert and oriented. Cranial nerves are grossly intact. PERTINENT LABORATORY AND PROCEDURES: 1. On 09/05/2016, 3-port laparoscopic cholecystectomy and laparoscopic liver wedge resection. 2. Gallbladder ultrasound on admission. Cholelithiasis. 3. Chest x-ray on admission. Normal chest radiograph. 4. Abdominal MRI. Cholelithiasis with no definite evidence of cholecystitis. A diminutive appendectomy evidence of the common bile duct with no visible intraductal stones. Trace elevated signal is seen around the pancreatic parenchyma and this can be correlated with amylase/lipase levels to rule out mild pancreatitis. 6. Latest CBC: WBC 8.6, hemoglobin 12.3, hematocrit 36.0, platelet count 300. 7. Latest CMP: Sodium 143, potassium 3.4, chloride 105, carbon dioxide 27, anion gap 16, BUN less than 2, creatinine 0.44, glucose 108, calcium 8.7, phosphorus 4.0, magnesium 1.9, AST 37, ALT 71, alkaline phosphatase 74. 8. Hemoglobin A1c 5.1. 9. Fasting lipid panel: Triglycerides 44, total cholesterol 94, LDL 39, HDL 49. 10. Iron panel: Iron 47, TIBC 272, iron saturation 17. 11. Stool occult blood x1 negative. At this time, I would like to thank all the consultants for seeing the patient, doing the necessary procedures, and providing clinical recommendations. The case and management of this patient was fully discussed with Dr. Maria. Approximately 35 minutes was spent on coordinating the discharge on this patient. HOUSTON MARIA MD, AM/DANNI Conf#: [id number] DID#: [id number] [facility]ITAL[facility]ard
== END 2016-09-06 14:08 | disposition home or self-care (01) | DRG 418 ==
LOC: FTE 17:20 → PP2 21:49
PROVIDERS: ADMIT Internal Medicine; ATTEND Internal Medicine
PROC: 0FB04ZX Excision of Liver, Percutaneous Endoscopic Approach, Diagnostic (ICD-10-PCS; 2016-09-05)
PROC: 0FT44ZZ Resection of Gallbladder, Percutaneous Endoscopic Approach (ICD-10-PCS; principal; 2016-09-05 09:30)
DX: K85.10 Biliary acute pancreatitis without necrosis or infection (principal); R65.10 Systemic inflammatory response syndrome (SIRS) of non-infectious origin without acute organ dysfunction; K80.10 Calculus of gallbladder with chronic cholecystitis without obstruction; E88.09 Other disorders of plasma-protein metabolism, not elsewhere classified; D64.9 Anemia, unspecified; R10.13 Epigastric pain; R11.2 Nausea with vomiting, unspecified
CPT/HCPCS: 36415; 71010; 74181; 76705; 80053; 80061; 81001; 81003; 82150; 82270; 83036; 83540; 83605; 83690; 83735; 84100; 84439; 84443; 84703; 85025; 87040; 87086; 88304; 88307; 88313; 96374; 96375; J0690; J1170; J1885; J2175; J2250; J2270; J2405; J2543; J2710; J3010; J3480; J7030